=== PATIENT | female | born 1945 | race Caucasian/White ===

== ENCOUNTER → 2017-10-09 | Outpatient (CLI) | payer OTHER, MEDICAID ==
[~2017-10-09] MED LIST: ALENDRONATE SOD70 MG; APRISO0.375 GM PO; BENTYL 10 MG CA10 M1; BENZONATATE100 MG PO; CALCIUM 500 +1 EAC5 PO; CELEXA40 MG PO; COLACE100 MG PO; DITROPAN XL10 M1 PO; FIBER CHOICE C1.5 G1 PO; FISH OIL 1,001000 M2 PO; MECLIZINE 25 MG25 M1 PO; NAPROSYN500 MG PO; NEXIUM40 MG PO; NORCO 5-325 TA1 EAC1 PO; OMEPRAZOLE20 M2; RISPERDAL 1 MG T1 MG; RISPERDAL 1 MG T1 MG PO; SIMVASTATIN40 MG PO; SINGULAIR 10 MG10 M1 PO; TOVIAZ8 MG PO; TRAVATAN Z2.5 ML OTIC; TRIAM60 TOP; UNICOMPLEX M TA1 TA1 PO; VICODIN 5-5001 EACH PO; VITAMINC500 PO
--- NOTE | 2017-10-09 13:42 | 2DMMODE ---
[place] [address] 2 D/M-MODE ECHOCARDIOGRAM Name: CHAD TIERNEY Room: [facility]#: [id number] Admission: 10/09/17 Attend Phys: Karen Isaac Discharge: Date of : 43 Date of Service: 10/09/17 1342 Report #: [id number] THIS REPORT FOR: //name// APPROVED REPORT Study performed: 10/09/2017 10:20:07 EXAM: Comprehensive 2D, Doppler, and color-flow Echocardiogram Patient Location: Out-Patient Status: routine BSA: 1.66 HR: 76 bpm BP: 120/70 mmHg Other Information Study Quality: Good Indications Murmur 2D Dimensions LVEF(%): 64.31 (>50%) IVSd: 11.15 (7-11mm) LVOT Diam: 20.40 (18-24mm) LVDd: 44.08 mm PWd: 10.36 (7-11mm) Ascending Ao: 27.10 (22-36mm) LVDs: 28.71 (25-40mm) Aortic Root: 29.42 mm [place] LVEF: 64.31 % Volumes Left Atrial Volume (Systole) LA ESV Index: 30.10 mL/m2 Aortic Valve AoV Peak Morales.: 2.28 m/s AO Peak Gr.: 20.78 mmHg LVOT Max P.27 mmHg AO Mean Gr.: 10.53 mmHg LVOT Mean P.22 mmHg LVOT Max V: 1.15 m/s AO V2 VTI: 39.78 cm LVOT Mean V: 0.67 m/s SERGE (VTI): 1.69 cm2 LVOT V1 VTI: 20.52 cm Mitral Valve MV Peak Gr.: 7.63 mmHg MV Mean Gr.: 3.54 mmHg E/A Ratio: 1.17 [place] [address] 2 D/M-MODE ECHOCARDIOGRAM Name: CHAD TIERNEY Room: [facility]#: [id number] Admission: 10/09/17 Attend Phys: Karen Isaac Discharge: Date of : 43 Date of Service: 10/09/17 1342 Report #: [id number] MV Decel. Time: 176.12 ms MV E Max Morales.: 1.11 m/s MV PHT: 51.07 ms MVA (PHT): 4.31 cm2 TDI E/Lateral E': 11.10 E/Medial E': 15.86 Medial E' Morales.: 0.07 m/s Lateral E' Morales.: 0.10 m/s Pulmonary Valve PV Peak Morales.: 0.84 m/s PV Peak Gr.: 2.84 mmHg Tricuspid Valve TR Peak Gr.: 23.66 mmHg RVSP: 28.66 mmHg Left Ventricle The left ventricle is normal size. There is normal LV segmental wall motion. There is normal left ventricular wall thickness. Left ventricular systolic function is normal. The left ventricular ejection fraction is within the normal range. LVEF is 55-60%. The left ventricular diastolic function is normal. Right Ventricle The right ventricle is normal size. The right ventricular systolic function is normal. Atria Left atrium is mildly dilated. The right atrium size is normal. Aortic Valve The Aortic valve is sclerotic. No aortic regurgitation is present. There is no aortic valvular stenosis. Mitral Valve There is mitral annular calcification. Mitral valve leaflets are calcified. Moderate mitral regurgitation. No evidence of mitral valve stenosis. There is moderate mitral valve prolapse. Tricuspid Valve The tricuspid valve is normal in structure. Mild tricuspid regurgitation. The RVSP is __28.7 mmHg. Pulmonic Valve The pulmonary valve is normal in structure. [place] [address] 2 D/M-MODE ECHOCARDIOGRAM Name: CHAD TIERNEY [id number] Admission: 10/09/17 Attend Phys: Karen Isaac Discharge: Date of : 43 Date of Service: 10/09/17 1342 Report #: [id number] regurgitation. Great Vessels The aortic root is normal in size. IVC is normal in size and collapses with >50% inspiration Pericardium There is no pericardial effusion. <Conclusion> LVEF is 55-60%. Left atrium is mildly dilated. The Aortic valve is sclerotic. Moderate mitral regurgitation. There is moderate mitral valve prolapse. <ELECTRONICALLY SIGNED> By: Harshad Alvarez MD, FACC 10/09/17 1342 41 134 Harshad Alvarez MD, FACC /INF
== END ==
LOC: M.CRD 09:54
DX: I08.1 Rheumatic disorders of both mitral and tricuspid valves (principal)

== ENCOUNTER 2020-12-20 22:33 | Inpatient (IN) | payer OTHER, MEDICAID ==
[~2020-12-20] VITALS: Ht 149.9 cm; Wt 40.4 kg
[2020-12-20 22:38] VITALS: BP 141/80
[2020-12-20 23:24] LABS: ABSOLUTE EOSINOPHILS 0.2 thou/uL (0.0-0.7); ABSOLUTE MONOCYTES 0.5 thou/uL (0.0-1.2); ABSOLUTE NEUTROPHILS 6.3 thou/uL (1.6-8.1); BASOPHILS 0.5 %; EOSINOPHILS 1.9 %; HEMATOCRIT 33.9 % (37.0-47.0); HEMOGLOBIN 11.3 gm/dL (12.0-15.0); LYMPHOCYTES 12.1 %; MCH 29.9 pg (26.0-34.0); MCHC 33.3 g/dL (28.0-37.0); MCV 89.8 fL (80.0-100.0); MONOCYTES 6.4 %; MPV 7.7 fl. (7.2-11.1); NUCLEATED RBCS 0 /100WBC; PLATELET COUNT* 285 thou/uL (150-400); POLYS 79.1 %; RBC 3.78 mil/uL (4.20-5.00); RDW-CV 14.2 % (10.5-14.5)
[2020-12-20 23:32] LABS: CALCIUM 8.2 mg/dL (8.5-10.1); CREATININE 1.1 mg/dL (0.6-1.3)
[2020-12-20 23:35] LABS: APTT 24.2 Seconds (25.0-31.3); PROTIME 10.6 Seconds (9.20-11.50)
[2020-12-20 23:43] LABS: ALBUMIN 3.7 g/dL (3.4-5.0); TOTAL BILIRUBIN 0.5 mg/dL (<0.1-1.0); TOTAL PROTEIN 7.2 g/dL (6.4-8.2)
[2020-12-21] VITALS (7 sets, daily range): BP systolic 121–160; BP diastolic 60–96
[2020-12-21 02:20] LABS: URINE BILIRUBIN NEGATIVE (Negative); URINE BLOOD TRACE (Negative); URINE CLARITY CLEAR; URINE COLOR YELLOW; URINE GLUCOSE-RANDOM NEGATIVE (Negative); URINE KETONES NEGATIVE (Negative); URINE LEUKOCYTES-REFLEX NEGATIVE (Negative); URINE NITRITE-REFLEX NEGATIVE (Negative); URINE PROTEIN NEGATIVE (Negative); URINE UROBILINOGEN 0.2 E.U./dl (0.2-1.0)
[2020-12-21 04:30] LABS: BE -4.9 mmol/L (-2 to +3); PCO2 36.2 mmHg (35.0-45.0); PO2 75.3 mmHg (75.0-100.0); pH 7.358 (7.340-7.450)
[2020-12-21 09:13] LABS: CHOLESTEROL 161 mg/dL (<200); HDL CHOLESTEROL 77 mg/dL (>40); LDL CHOLESTEROL 73 mg/dL (<100); SERUM ASSESSMENT Clear; TC:HDL 2.1 Ratio (Not establshd); TRIGLYCERIDE 57 mg/dL (<150); VLDL 11 mg/dL (<40)
--- NOTE | 2020-12-21 11:24 | EKG ---
[place] [address] ELECTROCARDIOGRAM REPORT Name: NIALLCHADMercedes HUERTA Room: [address] ADM IN M.R.#: [id number] Admission: 12/21/20 Attend Phys: Marilu Flores MD Discharge: Date of : 43 Date of Service: 12/20/202240 Report #: [id number] THIS REPORT FOR: //name// [facility] ED Test Date: 2020-12-20 Test Time: 22:41:38 Pat Name: CHAD TIERNEY Department: Room: 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1945 Requested By: Leatha Pete Order Number: [id number] MD: Luís Vizcaino Measurements Intervals [place] Rate: 98 P: 38 SD: 171 QRS: -48 QRSD: 92 T: 32 QT: 355 QTc: 454 Interpretive Statements Sinus rhythm Atrial premature complex Probable left atrial enlargement RSR' in V1 or V2, right VCD Inferior infarct, old possible Compared to ECG 11/26/2010 13:44:43 Atrial premature complex(es) now present RSR' in V1 or V2 now present Myocardial infarct finding now possible Left axis deviation persists Electronically Signed On 12-21-2020 11:24:00 CDT by Luís Vizcaino [email or web address] <ELECTRONICALLY SIGNED> By: Luís Vizcaino MD, [facility] 12/21/20 1124 40 40 Luís Vizcaino MD, [facility] /EPI
--- NOTE | 2020-12-21 11:27 | EKG ---
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[place] : 1945 Requested By: Leatha Pete Order Number: [id number] MD: Luís Vizcaino Measurements Intervals [place] Rate: 94 P: 52 [place]: 171 QRS: -43 QRSD: 92 T: 12 QT: 367 QTc: 459 Interpretive Statements Sinus rhythm Probable left atrial enlargement Abnormal R-wave progression, late transition Inferior infarct, old possible Compared to ECG 12/20/2020 22:41:38 Atrial premature complex(es) no longer present Right ventricular hypertrophy no longer present Myocardial infarct finding still present Electronically Signed On 12-21-2020 11:26:56 CDT by Luís Vizcaino [email or web address] <ELECTRONICALLY SIGNED> By: Luís Vizcaino MD, [facility] 12/21/20 1126 1 1 Luís Vizcaino MD, [facility] /EPI
[2020-12-21] MEDS ORDERED: PRILOSEC OTC20 MG PO (12:14)
[2020-12-21] MEDS ORDERED: SINGULAIR 10 MG10 MG PO (12:15)
[2020-12-21] MEDS ORDERED: BREO ELLIPTA 11 EACH INH (12:17)
[2020-12-21] MEDS ORDERED: ASPIRIN EC325 M1 PO (12:23)
--- NOTE | 2020-12-21 13:39 | 2DMMODE ---
[place] [address] 2 D/M-MODE ECHOCARDIOGRAM Name: CHAD TIERNEY BRADLEY Room: [address] IN [facility]#: [id number] Admission: 12/21/20 Attend Phys: Marilu Flores MD Discharge: Date of : 43 Date of Service: 12/21/20 1338 Report #: [id number] THIS REPORT FOR: cc: César Magana MD, Bruce D. MD Holkins,Luís Wahl MD [facility] ~ APPROVED REPORT Study performed: 12/21/2020 10:32:45 EXAM: Comprehensive 2D, Doppler, and color-flow Echocardiogram Patient Location: In-Patient Room #: 002 Status: routine BSA: 1.65 HR: 87 bpm BP: 127/66 mmHg Rhythm: NSR Other Information Study Quality: Good Indications Dyspnea 2D Dimensions IVSd: 9.33 (7-11mm) LVOT Diam: 19.94 (18-24mm) LVDd: 59.03 mm PWd: 10.26 (7-11mm) Ascending Ao: 29.55 (22-36mm) LVDs: 37.69 (25-40mm) Aortic Root: 32.64 mm Volumes Left Atrial Volume (Systole) LA ESV Index: 76.90 mL/m2 Aortic Valve AoV Peak Morales.: 2.71 m/s AO Peak Gr.: 29.45 mmHg LVOT Max P.86 mmHg AO Mean Gr.: 15.78 mmHg LVOT Mean P.38 mmHg LVOT Max V: 1.10 m/s AO V2 VTI: 44.51 cm LVOT Mean V: 0.70 m/s SERGE (VTI): 1.39 cm2 LVOT V1 VTI: 19.83 [place] [address] 2 D/M-MODE ECHOCARDIOGRAM Name: CHAD TIERNEY Room: [address] IN .R.#: [id number] Admission: 12/21/20 Attend Phys: Marilu Flores MD Discharge: Date of : 43 Date of Service: 12/21/20 1338 Report #: [id number] Mitral Valve MV Mean Gr.: 4.88 mmHg E/A Ratio: 1.46 MV Decel. Time: 219.24 ms MV E Max Morales.: 1.39 m/s MV PHT: 63.58 ms MVA (PHT): 3.46 cm2 TDI E/Lateral E': 10.69 E/Medial E': 9.93 Medial E' Morales.: 0.14 m/s Lateral E' Morales.: 0.13 m/s Pulmonary Valve PV Peak Morales.: 1.03 m/s PV Peak Gr.: 4.22 mmHg Tricuspid Valve RAP Estimate: 5.00 mmHg TR Peak Gr.: 53.14 mmHg RVSP: 58.00 mmHg PA Pressure: 58.00 mmHg Left Ventricle The left ventricle is normal size. There is normal LV segmental wall motion. There is normal left ventricular wall thickness. Left ventricular systolic function is normal. The left ventricular ejection fraction is within the normal range. LVEF is 65%. The left ventricular diastolic function is normal. Right Ventricle The right ventricle is normal size. The right ventricular systolic function is normal. Atria Left atrium is moderately dilated. The right atrium size is normal. Aortic Valve Moderate aortic valve sclerosis. No aortic regurgitation is present. Mild to moderate aortic stenosis. Mitral Valve Moderate mitral annular calcification. Mild mitral regurgitation. No evidence of mitral valve stenosis. Tricuspid Valve The tricuspid valve is normal in structure. Mild tricuspid regurgitation. [place] [address] 2 D/M-MODE ECHOCARDIOGRAM Name: CHAD TIERNEY Room: [address] IN [facility]#: [id number] Admission: 12/21/20 Attend Phys: Marilu Flores MD Discharge: Date of : 43 Date of Service: 12/21/20 1338 Report #: [id number] Pulmonic Valve The pulmonary valve is normal in structure. Trace pulmonic regurgitation. Great Vessels The aortic root is normal in size. IVC is normal in size and collapses >50% with inspiration. Pericardium There is no pericardial effusion. <Conclusion> The left ventricle is normal size. There is normal left ventricular wall thickness. Left ventricular systolic function is normal. The left ventricular ejection fraction is within the normal range. LVEF is 65%. The left ventricular diastolic function is normal. The right ventricle is normal size. Left atrium is moderately dilated. The right atrium size is normal. Moderate aortic valve sclerosis. No aortic regurgitation is present. Mild to moderate aortic stenosis. Moderate mitral annular calcification. Mild mitral regurgitation. No evidence of mitral valve stenosis. The tricuspid valve is normal in structure. Mild tricuspid regurgitation. Moderate pulmonary hypertension. IVC is normal in size and collapses >50% with inspiration. There is no pericardial effusion. There is normal LV segmental wall motion. <ELECTRONICALLY SIGNED> By: Luís Vizcaino MD, FACC 12/21/20 1338 1338 1338 Luís Vizcaino MD, FACC /INF
[2020-12-21] MEDS ORDERED: RHOPRESSA2.5 ML OPHTHALMIC (21:42)
[2020-12-21] MEDS ORDERED: VESICARE10 M1 PO (21:45)
[2020-12-22 04:00] VITALS: BP 128/65
[2020-12-22 04:49] LABS: CALCIUM 8.5 mg/dL (8.5-10.1); CREATININE 0.9 mg/dL (0.6-1.3)
[2020-12-22 08:55] VITALS: BP 114/57
[2020-12-22 11:57] VITALS: BP 125/77
[2020-12-22 16:43] VITALS: BP 139/78
[2020-12-22 20:30] VITALS: BP 121/68
[2020-12-23] VITALS (8 sets, daily range): BP systolic 114–117; BP diastolic 57–75
[2020-12-23 06:08] LABS: CALCIUM 9.1 mg/dL (8.5-10.1); CREATININE 0.8 mg/dL (0.6-1.3); MAGNESIUM 2.2 mg/dL (1.8-2.4); POTASSIUM 4.1 mmol/L (3.5-5.1)
[2020-12-23] MEDS ORDERED: LASIX 40 MG TAB40 M1 PO (10:23)
== END 2020-12-23 14:16 | disposition home health service (06) | DRG 291 ==
LOC: M.ERS 22:33 → M.TBA-ER 12-21 02:52 → M.2W 12-21 04:14 → M.ICU 12-21 04:14 → M.TBA-ER 12-21 04:14 → M.ICU 12-21 06:38 → M.2W 12-21 15:06
PROVIDERS: Internal Medicine; Personal Emergency Response Attendant; Registered Nurse; ADMIT Family Medicine; ATTEND Family Medicine
DX: I50.33 Acute on chronic diastolic (congestive) heart failure (principal); J96.01 Acute respiratory failure with hypoxia; J45.901 Unspecified asthma with (acute) exacerbation; F41.9 Anxiety disorder, unspecified; E78.00 Pure hypercholesterolemia, unspecified; K21.9 Gastro-esophageal reflux disease without esophagitis; K58.9 Irritable bowel syndrome, unspecified; Z60.2 Problems related to living alone; I27.20 Pulmonary hypertension, unspecified; I34.1 Nonrheumatic mitral (valve) prolapse; E78.5 Hyperlipidemia, unspecified; F20.9 Schizophrenia, unspecified; I35.0 Nonrheumatic aortic (valve) stenosis; Z20.822 Contact with and (suspected) exposure to COVID-19; Z90.49 Acquired absence of other specified parts of digestive tract; Z79.899 Other long term (current) drug therapy

== ENCOUNTER 2021-01-04 21:05 | Observation (INO) | payer OTHER, MEDICAID ==
[~2021-01-04] VITALS: Ht 152.4 cm; Wt 70.8 kg
[~2021-01-04 21:05] MED LIST changes: +ASPIRIN EC325 M1 PO; +BREO ELLIPTA 11 EACH INH; +LASIX 40 MG TAB40 M1 PO; +PRILOSEC OTC20 MG PO; +RHOPRESSA2.5 ML OPHTHALMIC; +SINGULAIR 10 MG10 MG PO; +VESICARE10 M1 PO
[2021-01-04 21:11] VITALS: BP 138/70
[2021-01-04 21:33] LABS: ABSOLUTE BASOPHILS 0.1 thou/uL (0.0-0.2); ABSOLUTE EOSINOPHILS 0.1 thou/uL (0.0-0.7); ABSOLUTE LYMPHOCYTES 1.2 thou/uL (0.8-5.3); ABSOLUTE MONOCYTES 0.5 thou/uL (0.0-1.2); ABSOLUTE NEUTROPHILS 5.4 thou/uL (1.6-8.1); BASOPHILS 0.8 %; EOSINOPHILS 1.8 %; HEMATOCRIT 37.5 % (37.0-47.0); HEMOGLOBIN 12.5 gm/dL (12.0-15.0); LYMPHOCYTES 16.6 %; MCH 29.8 pg (26.0-34.0); MCHC 33.4 g/dL (28.0-37.0); MCV 89.4 fL (80.0-100.0); MONOCYTES 7.2 %; MPV 7.7 fl. (7.2-11.1); NUCLEATED RBCS 0 /100WBC; PLATELET COUNT* 268 thou/uL (150-400); POLYS 73.6 %; RBC 4.19 mil/uL (4.20-5.00); RDW-CV 14.7 % (10.5-14.5); WBC 7.3 thou/uL (4.0-11.0)
[2021-01-04 21:42] LABS: CALCIUM 9.1 mg/dL (8.5-10.1); POTASSIUM 3.6 mmol/L (3.5-5.1)
[2021-01-04 21:44] LABS: URINE BILIRUBIN NEGATIVE (Negative); URINE BLOOD 1+ (Negative); URINE CLARITY CLEAR; URINE COLOR YELLOW; URINE GLUCOSE-RANDOM NEGATIVE (Negative); URINE KETONES TRACE (Negative); URINE LEUKOCYTES-REFLEX TRACE (Negative); URINE NITRITE-REFLEX NEGATIVE (Negative); URINE PROTEIN NEGATIVE (Negative); URINE UROBILINOGEN 0.2 E.U./dl (0.2-1.0)
[2021-01-04 21:44] LABS: PROTIME 10.3 Seconds (9.20-11.50)
[2021-01-04 21:51] LABS: BACTERIA-REFLEX 1-9 Few /HPF (None Seen); CASTS None Seen /LPF (None Seen); CRYSTALS None Seen /LPF (None Seen); SQUAMOUS 0-3 Few /LPF (0-3); URINE RBC 3-10 Few /HPF (0-2); URINE WBC-REFLEX 0-5 Rare /HPF (0-5)
[2021-01-04 21:52] LABS: ALBUMIN 4.1 g/dL (3.4-5.0); MAGNESIUM 2.1 mg/dL (1.8-2.4); TOTAL BILIRUBIN 0.5 mg/dL (<0.1-1.0); TOTAL PROTEIN 7.6 g/dL (6.4-8.2)
[2021-01-05 01:10] VITALS: BP 127/63
[2021-01-05 02:00] VITALS: BP 127/69
[2021-01-05 08:00] VITALS: BP 116/63
[2021-01-05 10:02] LABS: CHOLESTEROL 196 mg/dL (<200); HDL CHOLESTEROL 93 mg/dL (>40); LDL CHOLESTEROL 87 mg/dL (<100); SERUM ASSESSMENT Clear; TC:HDL 2.1 Ratio (Not establshd); TRIGLYCERIDE 82 mg/dL (<150); VLDL 16 mg/dL (<40)
[2021-01-05 12:00] VITALS: BP 120/68
--- NOTE | 2021-01-05 14:17 | EKG ---
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
[2021-01-05 16:00] VITALS: BP 127/71
[2021-01-06 00:21] VITALS: BP 124/69
[2021-01-06 04:16] LABS: HEMATOCRIT 35.9 % (37.0-47.0); HEMOGLOBIN 11.9 gm/dL (12.0-15.0); MCH 29.4 pg (26.0-34.0); MCHC 33.2 g/dL (28.0-37.0); MCV 88.8 fL (80.0-100.0); MPV 8.2 fl. (7.2-11.1); RBC 4.04 mil/uL (4.20-5.00); RDW-CV 14.4 % (10.5-14.5); WBC 6.5 thou/uL (4.0-11.0)
[2021-01-06 04:31] LABS: ALBUMIN 3.4 g/dL (3.4-5.0); CALCIUM 8.9 mg/dL (8.5-10.1); CREATININE 0.9 mg/dL (0.6-1.3); MAGNESIUM 2.3 mg/dL (1.8-2.4); POTASSIUM 3.7 mmol/L (3.5-5.1); TOTAL BILIRUBIN 0.4 mg/dL (<0.1-1.0); TOTAL PROTEIN 6.8 g/dL (6.4-8.2)
[2021-01-06 05:19] VITALS: BP 120/70
[2021-01-06 08:00] VITALS: BP 128/76
[2021-01-06 11:12] VITALS: BP 128/76
[2021-01-06 12:00] VITALS: BP 107/61
== END 2021-01-06 14:09 | disposition home or self-care (01) ==
LOC: M.ERS 21:05 → M.2W 01-05 00:42 → M.TBA-ER 01-05 00:42 → M.2W 01-05 01:28
PROVIDERS: Emergency Medicine; ADMIT Internal Medicine; ATTEND Internal Medicine
DX: R00.2 Palpitations (principal); Z20.822 Contact with and (suspected) exposure to COVID-19; I50.32 Chronic diastolic (congestive) heart failure; I35.0 Nonrheumatic aortic (valve) stenosis; J45.909 Unspecified asthma, uncomplicated; K21.9 Gastro-esophageal reflux disease without esophagitis; F25.9 Schizoaffective disorder, unspecified; F41.9 Anxiety disorder, unspecified; K58.9 Irritable bowel syndrome, unspecified; H40.9 Unspecified glaucoma; E78.5 Hyperlipidemia, unspecified; Z79.82 Long term (current) use of aspirin; Z79.899 Other long term (current) drug therapy

== ENCOUNTER 2021-04-03 11:47 | Emergency (ER) | payer OTHER, MEDICAID ==
[~2021-04-03] VITALS: Ht 149.9 cm; Wt 63.5 kg
[2021-04-03 12:51] LABS: ABSOLUTE BASOPHILS 0.1 thou/uL (0.0-0.2); ABSOLUTE EOSINOPHILS 0.4 thou/uL (0.0-0.7); ABSOLUTE LYMPHOCYTES 0.8 thou/uL (0.8-5.3); ABSOLUTE MONOCYTES 0.5 thou/uL (0.0-1.2); ABSOLUTE NEUTROPHILS 5.9 thou/uL (1.6-8.1); BASOPHILS 0.9 %; EOSINOPHILS 4.7 %; HEMATOCRIT 28.4 % (37.0-47.0); HEMOGLOBIN 9.5 gm/dL (12.0-15.0); LYMPHOCYTES 10.3 %; MCH 28.4 pg (26.0-34.0); MCHC 33.4 g/dL (28.0-37.0); NUCLEATED RBCS 0 /100WBC; PLATELET COUNT* 467 thou/uL (150-400); POLYS 77.1 %; RBC 3.34 mil/uL (4.20-5.00); WBC 7.7 thou/uL (4.0-11.0)
[2021-04-03 13:06] LABS: CALCIUM 8.4 mg/dL (8.5-10.1); CREATININE 0.9 mg/dL (0.6-1.3)
[2021-04-03 13:11] LABS: ALBUMIN 2.7 g/dL (3.4-5.0); TOTAL BILIRUBIN 0.7 mg/dL (<0.1-1.0); TOTAL PROTEIN 6.8 g/dL (6.4-8.2)
[2021-04-03] MEDS ORDERED: CARVEDILOL12.5 MG PO (13:53)
[2021-04-03 13:59] LABS: URINE BILIRUBIN NEGATIVE (Negative); URINE BLOOD NEGATIVE (Negative); URINE CLARITY CLEAR; URINE COLOR YELLOW; URINE GLUCOSE-RANDOM NEGATIVE (Negative); URINE KETONES NEGATIVE (Negative); URINE LEUKOCYTES-REFLEX NEGATIVE (Negative); URINE NITRITE-REFLEX NEGATIVE (Negative); URINE PROTEIN NEGATIVE (Negative); URINE UROBILINOGEN 0.2 E.U./dl (0.2-1.0)
[2021-04-03] MEDS ORDERED: APAP W/CODEINE1 TA2 PO (14:19)
[2021-04-03 14:31] VITALS: BP 121/70
[2021-04-03 15:35] LABS: ESR (SEDRATE) 75 mm/hr (0-30)
--- NOTE | 2021-04-05 09:51 | EKG ---
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[place] : 1945 Requested By: Lisa White Order Number: [id number] MD: Harshad Alvarez Measurements Intervals [place] Rate: 82 P: 55 [place]: 173 QRS: -48 QRSD: 96 T: -12 QT: 412 QTc: 482 Interpretive Statements Sinus rhythm Abnormal R-wave progression, late transition left anterior fasicular block Compared to ECG 01/04/2021 21:15:47 no change Electronically Signed On 04-05-2021 9:51:38 CDT by Harshad Alvarez [email or web address] <ELECTRONICALLY SIGNED> By: Harshad Alvarez MD, [facility] 04/05/21 0951 1222 1222 Harshad Alvarez MD, [facility] /EPI
== END 2021-04-03 14:32 | disposition home or self-care (01) ==
LOC: M.ERS 11:47
PROVIDERS: Physician Assistant
DX: S61.411A Laceration without foreign body of right hand, initial encounter (principal); R06.02 Shortness of breath; J45.909 Unspecified asthma, uncomplicated; I50.9 Heart failure, unspecified; D64.9 Anemia, unspecified; R53.1 Weakness; K21.9 Gastro-esophageal reflux disease without esophagitis; E78.00 Pure hypercholesterolemia, unspecified; Z90.89 Acquired absence of other organs; Z98.890 Other specified postprocedural states; X50.9XXA Other and unspecified overexertion or strenuous movements or postures, initial encounter; Y93.89 Activity, other specified; Y92.89 Other specified places as the place of occurrence of the external cause; Y99.8 Other external cause status

== ENCOUNTER 2021-06-14 13:46 | Inpatient (IN) | payer OTHER, MEDICAID ==
[~2021-06-14] VITALS: Ht 149.9 cm; Wt 63.5 kg
[~2021-06-14 13:46] MED LIST changes: +APAP W/CODEINE1 TA2 PO; +CARVEDILOL12.5 MG PO
[2021-06-14 13:55] VITALS: BP 134/68
[2021-06-14] MEDS ORDERED: FUROSEMIDE 40 M40 MG PO (14:05)
[2021-06-14 14:36] LABS: ABSOLUTE BASOPHILS 0.1 thou/uL (0.0-0.2); ABSOLUTE EOSINOPHILS 0.1 thou/uL (0.0-0.7); ABSOLUTE LYMPHOCYTES 0.7 thou/uL (0.8-5.3); ABSOLUTE MONOCYTES 0.6 thou/uL (0.0-1.2); ABSOLUTE NEUTROPHILS 6.1 thou/uL (1.6-8.1); BASOPHILS 0.8 %; HEMATOCRIT 35.5 % (37.0-47.0); HEMOGLOBIN 11.9 gm/dL (12.0-15.0); LYMPHOCYTES 8.9 %; MCH 28.8 pg (26.0-34.0); MCHC 33.4 g/dL (28.0-37.0); MCV 86.2 fL (80.0-100.0); MONOCYTES 7.8 %; NUCLEATED RBCS 0 /100WBC; PLATELET COUNT* 298 thou/uL (150-400); POLYS 80.5 %; RBC 4.12 mil/uL (4.20-5.00); RDW-CV 16.9 % (10.5-14.5); WBC 7.6 thou/uL (4.0-11.0)
[2021-06-14 14:45] LABS: CALCIUM 8.7 mg/dL (8.5-10.1); POTASSIUM 4.5 mmol/L (3.5-5.1)
[2021-06-14 14:56] LABS: ALBUMIN 3.5 g/dL (3.4-5.0); TOTAL BILIRUBIN 0.7 mg/dL (<0.1-1.0)
--- NOTE | 2021-06-14 15:21 | EKG ---
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1945 Requested By: Antoni Patel Order Number: [id number] MD: Harshad Alvarez Measurements Intervals [place] Rate: 82 P: 52 MD: 169 QRS: -55 QRSD: 94 T: -8 QT: 400 QTc: 468 Interpretive Statements Sinus rhythm RsR' in lead V1 LAD, consider left anterior fascicular block Low voltage, precordial leads Abnormal R-wave progression, late transition Borderline T abnormalities, inferior leads Compared to ECG 04/03/2021 12:22:26 Low QRS voltage now present Electronically Signed On 06-14-2021 15:21:21 CDT by Harshad Alvarez [email or web address] <ELECTRONICALLY SIGNED> By: Harshad Alvarez MD, [facility] 06/14/21 1521 1434 1434 Harshad Alvarez MD, [facility] /EPI
[2021-06-14 17:20] VITALS: BP 126/78
[2021-06-14 20:00] VITALS: BP 118/77
[2021-06-14 23:44] VITALS: BP 107/62
[2021-06-15 04:27] VITALS: BP 137/84
[2021-06-15 08:00] VITALS: BP 109/64
[2021-06-15 12:08] VITALS: BP 116/60
[2021-06-15 15:53] VITALS: BP 124/70
--- NOTE | 2021-06-15 16:12 | 2DMMODE ---
[place] [address] 2 D/M-MODE ECHOCARDIOGRAM Name: NIALLCHAD Room: [address] IN [facility]#: [id number] Admission: 06/14/21 Attend Phys: Tomy Romano Discharge: Date of : 43 Date of Service: 06/15/21 1612 Report #: [id number] THIS REPORT FOR: cc: César Magana MD, Bruce D. MD [place], Michael J. MD [facility] ~ APPROVED REPORT Study performed: 06/15/2021 15:35:16 EXAM: Comprehensive 2D, Doppler, and color-flow Echocardiogram Patient Location: In-Patient Room #: 219 Status: routine BSA: 1.58 HR: 98 bpm BP: 116/60 mmHg Rhythm: NSR Other Information Study Quality: Good Indications Congestive Heart Failure 2D Dimensions IVSd: 11.16 (7-11mm) LVOT Diam: 19.98 (18-24mm) LVDd: 52.53 mm PWd: 12.33 (7-11mm) Ascending Ao: 32.60 (22-36mm) LVDs: 31.28 (25-40mm) Aortic Root: 31.77 mm Volumes Left Atrial Volume (Systole) LA ESV Index: 75.80 mL/m2 Aortic Valve AoV Peak Morales.: 2.64 m/s AO Peak Gr.: 27.79 mmHg LVOT Max P.51 mmHg AO Mean Gr.: 14.99 mmHg LVOT Mean P.47 mmHg LVOT Max V: 1.17 m/s AO V2 VTI: 39.70 cm LVOT Mean V: 0.71 m/s SERGE (VTI): 1.55 cm2 LVOT V1 VTI: 19.62 [place] [address] 2 D/M-MODE ECHOCARDIOGRAM Name: CHAD TIERNEY Room: [address] IN ..#: [id number] Admission: 06/14/21 Attend Phys: Tomy Romano Discharge: Date of : 43 Date of Service: 06/15/21 1612 Report #: [id number] Mitral Valve MV Mean Gr.: 5.85 mmHg E/A Ratio: 1.46 MV Decel. Time: 213.52 ms MV E Max Morales.: 1.63 m/s MV PHT: 61.92 ms MVA (PHT): 3.55 cm2 TDI E/Lateral E': 10.87 E/Medial E': 13.58 Medial E' Morales.: 0.12 m/s Lateral E' Morales.: 0.15 m/s Pulmonary Valve PV Peak Morales.: 2.12 m/s PV Peak Gr.: 17.95 mmHg Tricuspid Valve RAP Estimate: 5.00 mmHg TR Peak Gr.: 63.76 mmHg RVSP: 68.00 mmHg PA Pressure: 68.00 mmHg Left Ventricle The left ventricle is normal size. There is normal LV segmental wall motion. Mild concentric left ventricular hypertrophy. Left ventricular systolic function is normal. LVEF is 60-65%. Transmitral Doppler flow pattern suggests restrictive physiology. Right Ventricle The right ventricle is normal size. The right ventricular systolic function is normal. Atria Left atrium is moderately dilated. The right atrium size is normal. Aortic Valve Moderate to severe aortic valve sclerosis. Mild aortic regurgitation. Moderate aortic stenosis. Mitral Valve Moderate mitral annular calcification. Moderate mitral regurgitation. No evidence of mitral valve stenosis. Tricuspid Valve The tricuspid valve is normal in structure. Mild tricuspid regurgitation. Moderate to severe pulmonary hypertension. The RVSP is 75 [place] [address] 2 D/M-MODE ECHOCARDIOGRAM Name: CHAD TIERNEY Room: [address] IN [facility]#: [id number] Admission: 06/14/21 Attend Phys: Tomy Romano Discharge: Date of : 43 Date of Service: 06/15/21 1612 Report #: [id number] Pulmonic Valve The pulmonary valve is normal in structure. Mild pulmonic regurgitation. Great Vessels The aortic root is normal in size. IVC is normal in size and collapses >50% with inspiration. Pericardium There is no pericardial effusion. <Conclusion> The left ventricle is normal size. Mild concentric left ventricular hypertrophy. Left ventricular systolic function is normal. LVEF is 60-65%. Transmitral Doppler flow pattern suggests restrictive physiology. There is normal LV segmental wall motion. Left atrium is moderately dilated. Moderate to severe aortic valve sclerosis. Mild aortic regurgitation. Moderate aortic stenosis. Moderate mitral annular calcification. Moderate mitral regurgitation. Mild tricuspid regurgitation. Moderate to severe pulmonary hypertension. The RVSP is 75 mmHg. <ELECTRONICALLY SIGNED> By: Isaías Quarles MD, FACC 06/15/211611 11 11 Isaías Quarles MD, FACC /INF
[2021-06-15 20:00] VITALS: BP 109/77
[2021-06-16] VITALS: BP 130/61
[2021-06-16 04:32] VITALS: BP 105/60
[2021-06-16 05:29] LABS: HEMATOCRIT 30.3 % (37.0-47.0); HEMOGLOBIN 10.1 gm/dL (12.0-15.0); MCH 28.8 pg (26.0-34.0); MCHC 33.4 g/dL (28.0-37.0); MCV 86.1 fL (80.0-100.0); MPV 7.1 fl. (7.2-11.1); RBC 3.52 mil/uL (4.20-5.00); RDW-CV 17.2 % (10.5-14.5); WBC 8.4 thou/uL (4.0-11.0)
[2021-06-16 05:49] LABS: CALCIUM 8.3 mg/dL (8.5-10.1); CREATININE 0.9 mg/dL (0.6-1.3); POTASSIUM 3.9 mmol/L (3.5-5.1)
[2021-06-16 08:00] VITALS: BP 111/68
[2021-06-16 11:53] VITALS: BP 95/49
[2021-06-16 17:41] VITALS: BP 118/82
[2021-06-17] VITALS (7 sets, daily range): BP systolic 85–142; BP diastolic 61–82
[2021-06-17 04:33] LABS: ABSOLUTE EOSINOPHILS 0.1 thou/uL (0.0-0.7); ABSOLUTE LYMPHOCYTES 0.6 thou/uL (0.8-5.3); ABSOLUTE MONOCYTES 0.6 thou/uL (0.0-1.2); ABSOLUTE NEUTROPHILS 6.5 thou/uL (1.6-8.1); BASOPHILS 0.3 %; EOSINOPHILS 1.4 %; HEMATOCRIT 30.4 % (37.0-47.0); HEMOGLOBIN 10.3 gm/dL (12.0-15.0); LYMPHOCYTES 7.6 %; MCH 29.3 pg (26.0-34.0); MCHC 33.9 g/dL (28.0-37.0); MCV 86.4 fL (80.0-100.0); MONOCYTES 7.7 %; MPV 6.9 fl. (7.2-11.1); NUCLEATED RBCS 0 /100WBC; PLATELET COUNT* 246 thou/uL (150-400); RBC 3.52 mil/uL (4.20-5.00); WBC 7.9 thou/uL (4.0-11.0)
[2021-06-17 04:40] LABS: CREATININE 0.8 mg/dL (0.6-1.3); POTASSIUM 3.3 mmol/L (3.5-5.1)
[2021-06-18] VITALS (7 sets, daily range): BP systolic 104–131; BP diastolic 68–82
[2021-06-18 04:04] LABS: HEMATOCRIT 33.2 % (37.0-47.0); MCH 28.6 pg (26.0-34.0); MCHC 33.1 g/dL (28.0-37.0); MCV 86.3 fL (80.0-100.0); MPV 6.9 fl. (7.2-11.1); RBC 3.85 mil/uL (4.20-5.00); RDW-CV 16.7 % (10.5-14.5); WBC 8.7 thou/uL (4.0-11.0)
[2021-06-18 04:37] LABS: MAGNESIUM 1.8 mg/dL (1.8-2.4); POTASSIUM 3.9 mmol/L (3.5-5.1)
[2021-06-19 04:00] VITALS: BP 116/78
[2021-06-19 04:44] LABS: CALCIUM 8.4 mg/dL (8.5-10.1); POTASSIUM 4.4 mmol/L (3.5-5.1)
[2021-06-19 07:24] VITALS: BP 114/73
[2021-06-19 11:30] VITALS: BP 116/62
[2021-06-19 16:00] VITALS: BP 125/80
[2021-06-19 20:30] VITALS: BP 103/59
[2021-06-19 23:45] VITALS: BP 104/61
[2021-06-20 04:16] LABS: ABSOLUTE EOSINOPHILS 0.3 thou/uL (0.0-0.7); ABSOLUTE LYMPHOCYTES 0.8 thou/uL (0.8-5.3); ABSOLUTE MONOCYTES 0.7 thou/uL (0.0-1.2); ABSOLUTE NEUTROPHILS 5.8 thou/uL (1.6-8.1); BASOPHILS 0.3 %; HEMATOCRIT 31.8 % (37.0-47.0); HEMOGLOBIN 10.8 gm/dL (12.0-15.0); LYMPHOCYTES 10.2 %; MCH 29.4 pg (26.0-34.0); MCV 86.3 fL (80.0-100.0); MONOCYTES 9.1 %; MPV 7.1 fl. (7.2-11.1); NUCLEATED RBCS 0 /100WBC; PLATELET COUNT* 265 thou/uL (150-400); POLYS 76.4 %; RBC 3.69 mil/uL (4.20-5.00); RDW-CV 16.4 % (10.5-14.5); WBC 7.7 thou/uL (4.0-11.0)
[2021-06-20 04:33] LABS: ALBUMIN 2.9 g/dL (3.4-5.0); CALCIUM 8.5 mg/dL (8.5-10.1); CREATININE 1.1 mg/dL (0.6-1.3); TOTAL BILIRUBIN 0.4 mg/dL (<0.1-1.0); TOTAL PROTEIN 6.2 g/dL (6.4-8.2)
[2021-06-20 04:46] VITALS: BP 107/63
[2021-06-20 07:27] VITALS: BP 99/56
[2021-06-20] MEDS ORDERED: SPIRONOLACTONE25 MG PO (08:08)
[2021-06-20] MEDS ORDERED: DEMADEX20 MG PO (08:08)
[2021-06-20] MEDS ORDERED: LOPRESSOR50 PO (08:08)
[2021-06-20 12:00] VITALS: BP 100/62
[2021-06-20 16:00] VITALS: BP 101/59
[2021-06-20 20:30] VITALS: BP 109/69
[2021-06-20 23:42] VITALS: BP 115/43
[2021-06-21 04:11] VITALS: BP 100/66
[2021-06-21 07:40] VITALS: BP 112/76
[2021-06-21 18:54] VITALS: BP 122/62
[2021-06-21 19:43] VITALS: BP 108/63
[2021-06-22] VITALS: BP 113/72
[2021-06-22 08:00] VITALS: BP 106/64
[2021-06-22 09:12] LABS: CALCIUM 9.1 mg/dL (8.5-10.1); CREATININE 0.9 mg/dL (0.6-1.3); POTASSIUM 4.1 mmol/L (3.5-5.1)
[2021-06-22 15:35] VITALS: BP 116/72
[2021-06-22 20:05] VITALS: BP 111/71
[2021-06-23 08:00] VITALS: BP 107/58
[2021-06-23 12:27] VITALS: BP 85/61
[2021-06-23 13:50] VITALS: BP 85/61
[2021-06-23 14:30] VITALS: BP 85/61
[2021-06-23 15:31] VITALS: BP 85/61
== END 2021-06-23 15:30 | disposition home health service (06) | DRG 291 ==
LOC: M.ERS 13:46 → M.2W 15:12 → M.TBA-ER 15:12 → M.2W 17:28 → M.3W 06-21 18:01
PROVIDERS: Family Medicine; Internal Medicine; Internal Medicine Cardiovascular Disease; Registered Nurse; ADMIT Internal Medicine; ATTEND Internal Medicine
DX: I50.33 Acute on chronic diastolic (congestive) heart failure (principal); J15.9 Unspecified bacterial pneumonia; E87.1 Hypo-osmolality and hyponatremia; J96.11 Chronic respiratory failure with hypoxia; Z20.822 Contact with and (suspected) exposure to COVID-19; F41.9 Anxiety disorder, unspecified; J45.909 Unspecified asthma, uncomplicated; K21.9 Gastro-esophageal reflux disease without esophagitis; E78.00 Pure hypercholesterolemia, unspecified; F20.9 Schizophrenia, unspecified; K58.9 Irritable bowel syndrome, unspecified; I35.0 Nonrheumatic aortic (valve) stenosis; E78.5 Hyperlipidemia, unspecified; E83.42 Hypomagnesemia; E87.6 Hypokalemia; I27.20 Pulmonary hypertension, unspecified; J44.9 Chronic obstructive pulmonary disease, unspecified; Z90.49 Acquired absence of other specified parts of digestive tract; Z87.81 Personal history of (healed) traumatic fracture; Z82.49 Family history of ischemic heart disease and other diseases of the circulatory system

== ENCOUNTER 2021-06-25 01:16 | Inpatient (IN) | payer OTHER, MEDICAID ==
[~2021-06-25] VITALS: Ht 121.9 cm; Wt 65.6 kg
[2021-06-25] VITALS (7 sets, daily range): BP systolic 102–116; BP diastolic 57–75
[~2021-06-25 01:16] MED LIST changes: +DEMADEX20 MG PO; +FUROSEMIDE 40 M40 MG PO; +LOPRESSOR50 PO; +SPIRONOLACTONE25 MG PO
[2021-06-25 01:39] LABS: ABSOLUTE BASOPHILS 0.1 thou/uL (0.0-0.2); ABSOLUTE EOSINOPHILS 0.1 thou/uL (0.0-0.7); ABSOLUTE LYMPHOCYTES 0.7 thou/uL (0.8-5.3); ABSOLUTE MONOCYTES 0.7 thou/uL (0.0-1.2); ABSOLUTE NEUTROPHILS 8.8 thou/uL (1.6-8.1); BASOPHILS 0.6 %; EOSINOPHILS 1.4 %; HEMATOCRIT 35.1 % (37.0-47.0); HEMOGLOBIN 11.6 gm/dL (12.0-15.0); LYMPHOCYTES 6.5 %; MCH 28.7 pg (26.0-34.0); MONOCYTES 6.8 %; MPV 6.7 fl. (7.2-11.1); NUCLEATED RBCS 0 /100WBC; PLATELET COUNT* 298 thou/uL (150-400); POLYS 84.7 %; RBC 4.04 mil/uL (4.20-5.00); RDW-CV 16.4 % (10.5-14.5); WBC 10.4 thou/uL (4.0-11.0)
[2021-06-25 01:52] LABS: CALCIUM 8.5 mg/dL (8.5-10.1); CREATININE 1.4 mg/dL (0.6-1.3); POTASSIUM 3.5 mmol/L (3.5-5.1)
[2021-06-25 02:02] LABS: ALBUMIN 3.4 g/dL (3.4-5.0); MAGNESIUM 1.7 mg/dL (1.8-2.4); TOTAL BILIRUBIN 0.6 mg/dL (<0.1-1.0); TOTAL PROTEIN 6.7 g/dL (6.4-8.2)
[2021-06-25 03:39] LABS: URINE BILIRUBIN NEGATIVE (Negative); URINE BLOOD 1+ (Negative); URINE CLARITY CLEAR; URINE COLOR YELLOW; URINE GLUCOSE-RANDOM NEGATIVE (Negative); URINE KETONES TRACE (Negative); URINE LEUKOCYTES-REFLEX NEGATIVE (Negative); URINE NITRITE-REFLEX NEGATIVE (Negative); URINE PROTEIN TRACE (Negative); URINE UROBILINOGEN 0.2 E.U./dl (0.2-1.0)
[2021-06-25 03:50] LABS: SQUAMOUS 0-3 Few /LPF (0-3); TRANSITIONAL EPITHEL CELL 0-3 Few /LPF (None Seen); URINE WBC-REFLEX 6-15 Few /HPF (0-5)
[2021-06-25 03:51] LABS: BACTERIA-REFLEX >30 Many /HPF (None Seen); COARSE GRANULAR CASTS 0-3 Few /LPF (None Seen); CRYSTALS None Seen /LPF (None Seen); FINE GRANULAR CASTS 4-10 Moderate /LPF (None Seen); HYALINE CASTS 4-10 Moderate /LPF (None Seen); MUCUS >6 Heavy strn/LPF (None Seen)
[2021-06-25] MEDS ORDERED: LOPRESSOR50 MG PO (07:38)
--- NOTE | 2021-06-25 14:37 | EKG ---
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: [place] : 1945 Requested By: Tabitha Arciniega Order Number: [id number] MD: Luís Vizcaino Measurements Intervals [place] Rate: 79 P: 70 SD: 156 QRS: -42 QRSD: 102 T: -10 QT: 420 QTc: 482 Interpretive Statements Sinus rhythm RSR' in V1 or V2, right VCD Inferior infarct, old suggested Baseline wander in lead(s) V3 Compared to ECG 06/14/2021 14:34:33 IVCD persists Myocardial infarct finding still suggested T-wave abnormality persists Electronically Signed On 06-25-2021 14:37:13 CDT by Luís Vizcaino [email or web address] <ELECTRONICALLY SIGNED> By: Luís Vizcaino MD, [facility] 06/25/21 1437 7 7 Luís Vizcaino MD, [facility] /EPI
[2021-06-26] VITALS: BP 100/62
[2021-06-26 04:00] VITALS: BP 104/67
[2021-06-26 04:30] LABS: HEMATOCRIT 32.7 % (37.0-47.0); HEMOGLOBIN 10.7 gm/dL (12.0-15.0); MCH 28.5 pg (26.0-34.0); MCHC 32.8 g/dL (28.0-37.0); MCV 86.9 fL (80.0-100.0); MPV 7.2 fl. (7.2-11.1); RBC 3.76 mil/uL (4.20-5.00); WBC 9.9 thou/uL (4.0-11.0)
[2021-06-26 04:40] LABS: CALCIUM 8.2 mg/dL (8.5-10.1); POTASSIUM 3.3 mmol/L (3.5-5.1)
[2021-06-26 08:00] VITALS: BP 104/64
[2021-06-26 11:58] VITALS: BP 106/71
[2021-06-26 17:00] VITALS: BP 102/61
[2021-06-26 20:00] VITALS: BP 109/53
[2021-06-27] VITALS: BP 102/65
[2021-06-27 04:00] VITALS: BP 95/58
[2021-06-27 05:18] LABS: HEMATOCRIT 33.9 % (37.0-47.0); MCH 28.6 pg (26.0-34.0); MCHC 32.6 g/dL (28.0-37.0); MCV 87.7 fL (80.0-100.0); MPV 7.5 fl. (7.2-11.1); RBC 3.86 mil/uL (4.20-5.00); WBC 8.9 thou/uL (4.0-11.0)
[2021-06-27 05:23] LABS: CALCIUM 8.4 mg/dL (8.5-10.1); CREATININE 1.1 mg/dL (0.6-1.3); POTASSIUM 4.2 mmol/L (3.5-5.1)
[2021-06-27 05:25] LABS: MAGNESIUM 2.1 mg/dL (1.8-2.4); POTASSIUM 4.2 mmol/L (3.5-5.1)
[2021-06-27 08:45] VITALS: BP 98/57
[2021-06-27] MEDS ORDERED: DEMADEX20 MG PO (09:57)
[2021-06-27 11:53] VITALS: BP 96/63
[2021-06-27 20:00] VITALS: BP 99/56
[2021-06-28] VITALS: BP 104/53
[2021-06-28 04:00] VITALS: BP 114/63
[2021-06-28 04:52] LABS: HEMOGLOBIN 10.6 gm/dL (12.0-15.0); MCH 28.7 pg (26.0-34.0); MCV 86.7 fL (80.0-100.0); MPV 7.3 fl. (7.2-11.1); RBC 3.69 mil/uL (4.20-5.00); RDW-CV 16.5 % (10.5-14.5); WBC 10.1 thou/uL (4.0-11.0)
[2021-06-28 04:57] LABS: CALCIUM 8.3 mg/dL (8.5-10.1); CREATININE 1.2 mg/dL (0.6-1.3)
[2021-06-28 09:00] VITALS: BP 121/65
[2021-06-28 20:00] VITALS: BP 110/66
[2021-06-28 23:32] VITALS: BP 95/58
[2021-06-29 03:26] VITALS: BP 100/63
[2021-06-29 04:22] LABS: HEMATOCRIT 30.9 % (37.0-47.0); HEMOGLOBIN 10.1 gm/dL (12.0-15.0); MCH 28.5 pg (26.0-34.0); MCHC 32.6 g/dL (28.0-37.0); MCV 87.7 fL (80.0-100.0); MPV 7.4 fl. (7.2-11.1); RBC 3.52 mil/uL (4.20-5.00); WBC 8.5 thou/uL (4.0-11.0)
[2021-06-29 04:25] LABS: CALCIUM 8.4 mg/dL (8.5-10.1); CREATININE 1.2 mg/dL (0.6-1.3); POTASSIUM 3.4 mmol/L (3.5-5.1)
[2021-06-29 08:00] VITALS: BP 114/76
[2021-06-29] MEDS ORDERED: LOPERAMIDE 2 MG2 M1 PO (11:25)
[2021-06-29 13:06] VITALS: BP 114/76
[2021-06-29 13:42] VITALS: BP 114/76
== END 2021-06-29 15:53 | disposition home health service (06) | DRG 291 ==
LOC: M.ERS 01:16 → M.TBA-ER 02:11 → M.ORTHSURG 02:11 → M.TBA-ER 11:03 → M.ORTHSURG 13:35
PROVIDERS: Emergency Medicine; Family Medicine; ADMIT Internal Medicine; ATTEND Internal Medicine
DX: I50.33 Acute on chronic diastolic (congestive) heart failure (principal); J96.01 Acute respiratory failure with hypoxia; N17.0 Acute kidney failure with tubular necrosis; Z20.822 Contact with and (suspected) exposure to COVID-19; Z90.49 Acquired absence of other specified parts of digestive tract; F41.9 Anxiety disorder, unspecified; E78.00 Pure hypercholesterolemia, unspecified; J45.909 Unspecified asthma, uncomplicated; K21.9 Gastro-esophageal reflux disease without esophagitis; I35.0 Nonrheumatic aortic (valve) stenosis; F20.9 Schizophrenia, unspecified; I27.20 Pulmonary hypertension, unspecified; J44.9 Chronic obstructive pulmonary disease, unspecified; K58.9 Irritable bowel syndrome, unspecified; Z79.899 Other long term (current) drug therapy; Z79.82 Long term (current) use of aspirin; Z28.21 Immunization not carried out because of patient refusal

== ENCOUNTER 2021-07-16 10:31 | Inpatient (IN) | payer OTHER, MEDICAID ==
[~2021-07-16] VITALS: Ht 149.9 cm; Wt 65.5 kg
[~2021-07-16 10:31] MED LIST changes: +LOPERAMIDE 2 MG2 M1 PO; +LOPRESSOR50 MG PO
[2021-07-16 10:36] VITALS: BP 89/60
[2021-07-16 10:53] LABS: ABSOLUTE LYMPHOCYTES 0.5 thou/uL (0.8-5.3); ABSOLUTE MONOCYTES 0.3 thou/uL (0.0-1.2); ABSOLUTE NEUTROPHILS 5.5 thou/uL (1.6-8.1); BASOPHILS 0.6 %; EOSINOPHILS 0.1 %; HEMATOCRIT 34.2 % (37.0-47.0); MCH 28.5 pg (26.0-34.0); MCV 88.9 fL (80.0-100.0); MONOCYTES 5.1 %; MPV 7.5 fl. (7.2-11.1); NUCLEATED RBCS 0 /100WBC; PLATELET COUNT* 265 thou/uL (150-400); POLYS 86.2 %; RBC 3.85 mil/uL (4.20-5.00); RDW-CV 16.7 % (10.5-14.5); WBC 6.4 thou/uL (4.0-11.0)
[2021-07-16 10:59] LABS: CALCIUM 8.5 mg/dL (8.5-10.1); CREATININE 1.5 mg/dL (0.6-1.3)
[2021-07-16 11:15] LABS: ALBUMIN 3.3 g/dL (3.4-5.0); TOTAL BILIRUBIN 0.7 mg/dL (<0.1-1.0)
--- NOTE | 2021-07-16 11:26 | EKG ---
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 : 1945 Requested By: Juanito Ramey Order Number: [id number] MD: Harshad Alvarez Measurements Intervals [place] Rate: 64 P: 19 MD: 157 QRS: -42 QRSD: 94 T: -9 QT: 427 QTc: 441 Interpretive Statements Sinus rhythm RsR' in V1 poor r wave progression Left axis deviation Borderline T abnormalities, inferior leads Compared to ECG 06/25/2021 01:28:53 no change Electronically Signed On 07-16-2021 11:26:28 CDT by Harshad Alvarez [email or web address] <ELECTRONICALLY SIGNED> By: Harshad Alvarez MD, FACC 07/16/21 1126 1041 1041 Harshad Alvarez MD, [facility] /EPI
[2021-07-16] MEDS ORDERED: DEMADEX20 MG PO (12:56)
[2021-07-16 16:56] VITALS: BP 86/70
[2021-07-16 17:30] VITALS: BP 97/64
[2021-07-16 20:00] VITALS: BP 100/72
[2021-07-17] VITALS: BP 98/51
[2021-07-17 04:09] LABS: CALCIUM 8.4 mg/dL (8.5-10.1); CREATININE 1.5 mg/dL (0.6-1.3); POTASSIUM 3.9 mmol/L (3.5-5.1)
[2021-07-17 04:43] VITALS: BP 95/55
--- NOTE | 2021-07-17 06:51 | NUR ---
PT AO X4 COMPLETED ASSESSMENT WITH EYES CLOSED BUT ANSWERED ALL QUESTIONS. LUNGS DIMINISHED WITH NO COUGH NOTED, PT HAS 2+ PITTING EDEMA IN BLE. SKIN IS TIGHT AND SHINY. PT BP HAS BEEN SOFT BUT PT ASYMPTOMATIC. SHE HAS SLEPT MOST OF THIS PM SHIFT. PUREWICK IN PLACE FOR PT COMFORT. CALL LIGHT IN REACH, BED ALARM FOR PT SAFETY
[2021-07-17 08:00] VITALS: BP 98/59
[2021-07-17 11:30] VITALS: BP 118/70
[2021-07-17 16:00] VITALS: BP 118/76
[2021-07-17 20:07] VITALS: BP 117/75
[2021-07-18 00:27] VITALS: BP 91/58
[2021-07-18 04:04] LABS: HEMATOCRIT 31.4 % (37.0-47.0); HEMOGLOBIN 10.2 gm/dL (12.0-15.0); MCH 28.9 pg (26.0-34.0); MCHC 32.3 g/dL (28.0-37.0); MCV 89.6 fL (80.0-100.0); MPV 7.7 fl. (7.2-11.1); RBC 3.51 mil/uL (4.20-5.00); RDW-CV 16.1 % (10.5-14.5); WBC 8.2 thou/uL (4.0-11.0)
[2021-07-18 04:18] VITALS: BP 94/55
[2021-07-18 04:21] LABS: CALCIUM 8.6 mg/dL (8.5-10.1); CREATININE 1.3 mg/dL (0.6-1.3); MAGNESIUM 2.2 mg/dL (1.8-2.4); POTASSIUM 3.7 mmol/L (3.5-5.1)
[2021-07-18 04:25] LABS: CALCIUM 8.6 mg/dL (8.5-10.1); CREATININE 1.3 mg/dL (0.6-1.3); POTASSIUM 3.9 mmol/L (3.5-5.1)
[2021-07-18 08:00] VITALS: BP 104/62
[2021-07-18 12:00] VITALS: BP 110/72
[2021-07-18 16:00] VITALS: BP 108/66
[2021-07-18 19:54] VITALS: BP 114/64
[2021-07-19] VITALS (9 sets, daily range): BP systolic 78–967; BP diastolic 48–68
--- NOTE | 2021-07-19 01:48 | NUR ---
ASSESSMENT CHARTED ON 07/18/21 AT 0104 TIME IS INCORRECT. CORRECT TIME AND DATE IS 07/18/21 AT 2050.
[2021-07-19 03:57] LABS: HEMATOCRIT 31.7 % (37.0-47.0); HEMOGLOBIN 10.3 gm/dL (12.0-15.0); MCH 29.2 pg (26.0-34.0); MCHC 32.5 g/dL (28.0-37.0); MCV 90.1 fL (80.0-100.0); MPV 7.7 fl. (7.2-11.1); RBC 3.52 mil/uL (4.20-5.00); RDW-CV 16.3 % (10.5-14.5); WBC 8.2 thou/uL (4.0-11.0)
[2021-07-19 04:13] LABS: CALCIUM 8.5 mg/dL (8.5-10.1); CREATININE 1.4 mg/dL (0.6-1.3); POTASSIUM 3.9 mmol/L (3.5-5.1)
--- NOTE | 2021-07-19 10:38 | NUR ---
ADMISSION ASSESSMENT July CHAD TIERNEY RECEIVED INFO: PATIENT ADMITTED FROM: HOME BY AMBULANCE MENTAL STATUS: ALERT AND ORIENTED X 3 LIVING ARRANGEMENT: INDEPENT LIVING APARTMENT SUPPORT SYSTEM: SISTER: SERGE CAMARENA PHONE: [phone] CAN RETURN TO PRIOR: REHAB VS. SKILLED ADL'S: INDEPENDENT SISTER TAKES HER SHOPPING FOR FOOD [facility] DELIVERY ASSISTIVE DEVICES: APRIA FOR OXYGEN 4L/NC USES A WALKER PRIOR RESOURCES: [facility] PCP: DR. Charis FLANNERY
--- NOTE | 2021-07-19 12:57 | CON ---
[address] [address] CONSULTATION Name: CHAD TIERNEY Room: [address] IN M.R.#: [id number] Admission: 07/16/21 Attend Phys: Estephanie Swift Discharge: Date of : 43 Report #: [id number] THIS REPORT FOR: cc: Bradly Chapa Vincent R. DO Blick, David R. MD [facility] ~ cc: César Magana MD DATE OF CONSULTATION: 07/16/2021 CARDIOLOGY CONSULTATION HISTORY OF PRESENT ILLNESS: The patient is a 76-year-old single white female who I was asked to see in the Emergency Room today after she complained to being short of breath. The patient is followed by my partner, Dr. Luís Vizcaino. She has a history of mild aortic stenosis. She has had recurrent admissions here to [facility] with diastolic heart failure and COPD. She does have oxygen at home. The patient was last admitted here to [facility] 2 weeks ago with diastolic heart failure, urinary tract infection. She was sent home. She was brought back to the emergency room today by paramedics. She complained to being short of breath. She denies any medical noncompliance. She has been coughing and noticed some edema. Cardiology consultation requested. She denies any recent chest pain. She has noticed some rapid heartbeats, but no syncope. PAST MEDICAL HISTORY: She has had previous removal of a skin cancer, appendectomy, cataract extraction. She has a history of glaucoma. She has a history of schizophrenia, but does not see a psychiatrist. She has COPD, hyperlipidemia. MEDICATIONS: On admission include carvedilol, Celexa, Lasix, hydrocodone, inhaler, Risperdal, simvastatin. ALLERGIES: She has no known drug allergies. FAMILY HISTORY: Negative for heart disease. SOCIAL HISTORY: She is , lives with herself here in [place]. No smoking, alcohol abuse. REVIEW OF SYSTEMS: She has had no history of stroke, liver disease, kidney disease, chronic skin condition. PHYSICAL EXAMINATION: GENERAL: Revealed an elderly female lying in bed. [place] [address] CONSULTATION Name: CHAD TIERNEY Room: [address]#: [id number] Admission: 07/16/21 Attend Phys: Estephanie Swift Discharge: Date of : 43 Report #: [id number] VITAL SIGNS: She had a blood pressure of 110/70, pulse is 80. She is afebrile. HEENT: She was anicteric, conjunctiva pink. Mucous membranes are moist. NECK: Veins not appear distended. CHEST: Revealed expiratory prolonged phase. HEART: Regular rate and rhythm. Grade 3 systolic ejection murmur along the left sternal border. ABDOMEN: Obese. EXTREMITIES: Had no pitting edema. Dorsalis pedis pulse cannot be palpated. SKIN: Cool and dry. NEUROLOGIC: Nonfocal. Her ECG on admission showed a sinus rhythm. There was no significant ST or T-wave change noted. The patient actually had an echocardiogram done last month here at [facility]. The aortic valve gradient was 28 mmHg consistent with mild aortic stenosis. Ejection fraction of 60%. There was left ventricular hypertrophy, left atrial enlargement, moderate mitral regurgitation, severe pulmonary hypertension with a pulmonary artery pressure 75 mmHg. The patient had a portable chest x-ray in the emergency room today that showed cardiomegaly, vascular congestion. She actually had a CT scan of the chest last month when she was here that showed no pulmonary embolus, interstitial infiltrates, cardiomegaly, coronary artery calcification. Her lab work, BUN 31, creatinine 1.5. Her high sensitivity troponin was 104. BNP 16,298, hematocrit 34.2. COVID antigen stat test was negative. IMPRESSION AND RECOMMENDATIONS: 1. Eyypl-rl-hpihqvs diastolic heart failure. Recommend Lasix. 2. Mild aortic stenosis. 3. Schizophrenia. 4. Hyperlipidemia. The patient is on a statin drug. 5. Obesity. The patient is 4 feet 11 inches and weighs 137 pounds. <ELECTRONICALLY SIGNED> By: Harshad Alvarez MD, FACC 07/19/21 1257 1424 [id number] Alvarez MD, FACC /nt
--- NOTE | 2021-07-19 16:09 | 2DMMODE ---
[place] [address] 2 D/M-MODE ECHOCARDIOGRAM Name: NIALLCHAD Room: [address] IN [facility]#: [id number] Admission: 07/16/21 Attend Phys: Tony Lobo Discharge: Date of : 43 Date of Service: 07/19/21 1609 Report #: [id number] THIS REPORT FOR: cc: Bradly Chapa,Bradly Mendez,Isaías Woodruff MD [facility] ~ APPROVED REPORT Study performed: 07/19/2021 14:19:55 EXAM: Comprehensive 2D, Doppler, and color-flow Echocardiogram Patient Location: In-Patient Room #: [facility] Status: routine BSA: 1.63 HR: 75 bpm BP: 103/58 mmHg Rhythm: NSR Other Information Study Quality: Good Indications Congestive Heart Failure 2D Dimensions IVSd: 11.10 (7-11mm) LVOT Diam: 19.94 (18-24mm) LVDd: 49.26 mm PWd: 10.25 (7-11mm) Ascending Ao: 30.22 (22-36mm) LVDs: 32.48 (25-40mm) Aortic Root: 30.90 mm Volumes Left Atrial Volume (Systole) LA ESV Index: 73.10 mL/m2 Aortic Valve AoV Peak Morales.: 2.14 m/s AO Peak Gr.: 18.29 mmHg LVOT Max P.52 mmHg AO Mean Gr.: 10.52 mmHg LVOT Mean P.18 mmHg LVOT Max V: 0.79 m/s AO V2 VTI: 35.09 cm LVOT Mean V: 0.50 m/s SERGE (VTI): 1.23 cm2 LVOT V1 VTI: 13.86 cm AI Travis: 1.75 m/s2 [place] [address] 2 D/M-MODE ECHOCARDIOGRAM Name: CHAD TIERNEY Room: [address] IN .R.#: [id number] Admission: 07/16/21 Attend Phys: Tony Lobo Discharge: Date of : 43 Date of Service: 07/19/21 1609 Report #: [id number] AI PHT: 570.41 ms Mitral Valve MV Mean Gr.: 2.90 mmHg E/A Ratio: 1.66 MV Decel. Time: 232.80 ms MV E Max Morales.: 1.29 m/s MV PHT: 67.51 ms MVA (PHT): 3.26 cm2 TDI E/Lateral E': 9.21 E/Medial E': 9.21 Medial E' Morales.: 0.14 m/s Lateral E' Morales.: 0.14 m/s Pulmonary Valve PV Peak Morales.: 1.39 m/s PV Peak Gr.: 7.67 mmHg Tricuspid Valve RAP Estimate: 15.00 mmHg TR Peak Gr.: 56.44 mmHg RVSP: 71.00 mmHg PA Pressure: 71.00 mmHg Left Ventricle The left ventricle is normal size. There is normal LV segmental wall motion. There is normal left ventricular wall thickness. Left ventricular systolic function is normal. LVEF is 55-60%. Transmitral Doppler flow pattern suggests restrictive physiology. Right Ventricle Right ventricle is moderately dilated. The right ventricular systolic function is normal. Atria Left atrium is moderately dilated. Right atrium is moderately dilated. Aortic Valve Severe aortic valve sclerosis. Mild aortic regurgitation. Moderate aortic stenosis. Mitral Valve There is mitral annular calcification. Moderate mitral regurgitation. Mild mitral stenosis. Tricuspid Valve The tricuspid valve is normal in structure[place] [address] 2 D/M-MODE ECHOCARDIOGRAM Name: CHAD TIERNEY Room: [address] IN [facility]#: [id number] Admission: 07/16/21 Attend Phys: Tony Lobo Discharge: Date of : 43 Date of Service: 07/19/21 1609 Report #: [id number] regurgitation. Severe pulmonary hypertension. The RVSP is 75 mmHg. Pulmonic Valve The pulmonary valve is normal in structure. Mild pulmonic regurgitation. Great Vessels The aortic root is normal in size. IVC is dilated and collapses <50% with inspiration. Pericardium There is no pericardial effusion. Left pleural effusion. <Conclusion> The left ventricle is normal size. There is normal left ventricular wall thickness. Left ventricular systolic function is normal. LVEF is 55-60%. Transmitral Doppler flow pattern suggests restrictive physiology. Right ventricle is moderately dilated. Left atrium is moderately dilated. Right atrium is moderately dilated. Severe aortic valve sclerosis. Mild aortic regurgitation. Moderate aortic stenosis. There is mitral annular calcification. Moderate mitral regurgitation. Mild mitral stenosis. Moderate tricuspid regurgitation. Severe pulmonary hypertension. The RVSP is 75 mmHg. Mild pulmonic regurgitation. IVC is dilated and collapses <50% with inspiration. Left pleural effusion. <ELECTRONICALLY SIGNED> By: Isaías Quarles MD, FACC 07/19/21 1609 1609 1609 Isaías Quarles MD, FACC /INF
[2021-07-20] VITALS (8 sets, daily range): BP systolic 85–164; BP diastolic 55–73
[2021-07-20 04:10] LABS: HEMATOCRIT 32.6 % (37.0-47.0); HEMOGLOBIN 10.4 gm/dL (12.0-15.0); MCH 28.7 pg (26.0-34.0); MCV 89.5 fL (80.0-100.0); RBC 3.64 mil/uL (4.20-5.00); RDW-CV 16.1 % (10.5-14.5); WBC 7.7 thou/uL (4.0-11.0)
[2021-07-20 04:30] LABS: CREATININE 1.5 mg/dL (0.6-1.3); MAGNESIUM 2.3 mg/dL (1.8-2.4); PHOSPHORUS* 5.6 mg/dL (2.5-4.9); POTASSIUM 4.1 mmol/L (3.5-5.1)
--- NOTE | 2021-07-20 06:04 | NUR ---
PT AO X2-3 WITH SOME FOREGETFULNESS. SHE IS LYING IN BED WATCHING TV. SHE IS NSR ON TELE WITH LUNGS DIMINISHED THROUGHOUT. PT WAS ON 6L NC BUT APPROX 0000 SATS DROPPED TO 70-80s SUSTAINING FOR SEVERAL MINUTES. I WENT TO BEDSIDE TO ASSESS AND PT WAS SLEEPING, USING MOUTH BREATING, SHE WOKE EASILY AND IN ENCOURAGED HER TO TAKE DEEP BREATHS IN THROUGH NOSE. SATS DID NOT IMPROVE SO I PUT HER ON HIFLOW CANNULA AT 10L TO MAINTAIN SAT>90. PT ABD IS ROUND AND SOFT WITH PT REPORTING LAST BM SEVERAL DAYS AGO. SHEIS GETTING SENNA SCHEDULED DAILY. PT EDEMA IS BETTER WITH BLE 1+ AND ARMS GENERAL NONPITTING EDEMA. PT HAS PUREWICK IN PLACE WITH CLEAR YELLOW OUTPUT. CALL LIGHT IN REACH AND BED ALARM ON FOR PT SAFETY.
--- NOTE | 2021-07-20 15:03 | NUR ---
Case Management Followup CM and providers met to discuss length of stay and discharge. Providers indicated pt not yet medically clear for discharge. Upon discharge, pt to return to independent living aprtment with HH through [facility] ([phone]) and 4l oxygen through [facility]. CM to continue to follow.
--- NOTE | 2021-07-20 17:46 | NUR ---
PATIENT HAD A QUIET DAY. WAS UP TO CHAIR FOR 2 MEALS. PATIENT REMAINS ON O2 6-8LITERS PER NC. PATIENT HAS FAIR APPETITE. UP TO COMMODE WITH ASSIST. HAD LARGE BM. CONTINUES TO USE PUREWICK FOR URINARY INCONTINENCE.
[2021-07-21 04:00] VITALS: BP 104/66
[2021-07-21 04:23] LABS: HEMATOCRIT 32.3 % (37.0-47.0); HEMOGLOBIN 10.3 gm/dL (12.0-15.0); MCH 28.6 pg (26.0-34.0); MCV 89.4 fL (80.0-100.0); MPV 8.3 fl. (7.2-11.1); RBC 3.61 mil/uL (4.20-5.00); RDW-CV 16.1 % (10.5-14.5); WBC 7.6 thou/uL (4.0-11.0)
[2021-07-21 04:41] LABS: CALCIUM 9.1 mg/dL (8.5-10.1); CREATININE 1.3 mg/dL (0.6-1.3); MAGNESIUM 2.3 mg/dL (1.8-2.4); POTASSIUM 3.1 mmol/L (3.5-5.1)
--- NOTE | 2021-07-21 05:58 | NUR ---
pt AO x3 with some memory deficit. pt was moving from chair to bed and dislodged her iv which bled quite a bit requiring pressure dressing to obtain clotting. pt still has general edema 1+ pitting with legs very hard . pt lungs cta/dim with no cough. she is on 6l per nc. she slept well and makes needs known appropriately. call light in reach, bed alarm on for safety
[2021-07-21 08:00] VITALS: BP 106/35
[2021-07-21 12:00] VITALS: BP 114/74
[2021-07-21 15:22] LABS: BE 20.3 mmol/L (-2 to +3); PO2 66.4 mmHg (75.0-100.0); pH 7.491 (7.340-7.450)
[2021-07-21 15:34] LABS: PCO2 62.9 mmHg (35.0-45.0)
--- NOTE | 2021-07-21 15:39 | NUR ---
G REPORTED TO DR GUZMAN VIA TEXT.
--- NOTE | 2021-07-21 15:48 | NUR ---
CALLED DR GUZMAN IN REGARD TO PATIENTS ABG'S. ORDERS NOTED.
[2021-07-21 16:00] VITALS: BP 117/71
--- NOTE | 2021-07-21 18:54 | NUR ---
PATIENT WAS QUIET TODAY, BUT HER RESPIRATORY STATUS HAS WORSENED. O2 5 LITERS PER NC THIS AM. INCREASED TO 6 AND 8 LITERS AROUND 1100 TODAY. BREATH SOUNDS WITH SCATTERED CRACKLES AND DIMINISHED. PATIENT HAD ABG DONE THIS AFTERNOON, AND CALLEDTO DR GUZMAN. SHE WANTS PATIENT ON BIPAP. PCO2 62.9 AND HCO3 47. PLACED ON BIPAP BY ERT AT 1620. BIPAP 14/8, RATE 14 AT 40%. HER SISTER WAS HERE THIS AFTERNOON. I UPDATED HER ON PATIENTS CONDITION AND PLAN OF CARE. SHE HOPES TO TALK WITH DOCTORS TOMORROW. DR GUZMAN IS AWARE. PULMONARY HAS BEEN CONSULTED IN REGARD TO PATIENT PULMONARY STATUS. RESTING AT 1900.
[2021-07-21 19:45] VITALS: BP 109/61
[2021-07-22 00:53] VITALS: BP 93/60
--- NOTE | 2021-07-22 02:45 | NUR ---
ASSUMED CARE OF PT AT 1900. PT IS ALERT AND ORIENTED. VSS. PERRLA. NO COMPLAINTS OF PAIN. PT HAS A PURE WICK IN PLACE. PT IS IN SINUS RYTHM ON THE TELEMETRY. PT IS RESTING COMFORTABLY IN BED. RESPIRATIONS ARE EVEN AND NONLABORED. WILL CONTINUE TO MONITOR PT.
[2021-07-22 04:05] LABS: HEMATOCRIT 31.5 % (37.0-47.0); HEMOGLOBIN 10.4 gm/dL (12.0-15.0); MCH 29.2 pg (26.0-34.0); MCHC 32.9 g/dL (28.0-37.0); MCV 88.6 fL (80.0-100.0); MPV 8.2 fl. (7.2-11.1); RBC 3.55 mil/uL (4.20-5.00); RDW-CV 16.3 % (10.5-14.5); WBC 7.6 thou/uL (4.0-11.0)
[2021-07-22 04:16] LABS: BUN 48 mg/dL (7-18); CALCIUM 9.1 mg/dL (8.5-10.1); CHLORIDE 98 mmol/L (98-107); CREATININE 1.2 mg/dL (0.6-1.3); GLUCOSE 101 mg/dL (70-99); SODIUM 147 mmol/L (136-145)
[2021-07-22 04:18] VITALS: BP 91/56
[2021-07-22 04:56] LABS: CO2 > 45 mmol/L (21-32)
[2021-07-22 08:00] VITALS: BP 106/60
[2021-07-22 12:12] VITALS: BP 90/61
--- NOTE | 2021-07-22 14:26 | NUR ---
pt's sister giovany is requesting notary for dpoa. giovany has concerns about pt dx of "pulmonary hypertension" and wants to spk with MD, possibly wanting to have pt transfer to ." cm faxed dr estrada with giovany burns [phone].
[2021-07-22 15:56] VITALS: BP 99/67
[2021-07-22 20:00] VITALS: BP 103/65
[2021-07-22 21:17] LABS: CALCIUM 8.9 mg/dL (8.5-10.1); CREATININE 1.2 mg/dL (0.6-1.3); MAGNESIUM 2.1 mg/dL (1.8-2.4); POTASSIUM 3.8 mmol/L (3.5-5.1)
[2021-07-23] VITALS (7 sets, daily range): BP systolic 91–1001; BP diastolic 55–67
[2021-07-23 05:18] LABS: HEMATOCRIT 32.2 % (37.0-47.0); HEMOGLOBIN 10.5 gm/dL (12.0-15.0); MCHC 32.7 g/dL (28.0-37.0); MCV 88.5 fL (80.0-100.0); MPV 8.5 fl. (7.2-11.1); NUCLEATED RBCS 0 /100WBC; PLATELET COUNT* 159 thou/uL (150-400); RBC 3.63 mil/uL (4.20-5.00); RDW-CV 16.3 % (10.5-14.5); WBC 3.7 thou/uL (4.0-11.0)
[2021-07-23 05:29] LABS: APTT 26.2 Seconds (25.0-31.3); INR 1.1; PROTIME 10.9 Seconds (9.20-11.50)
[2021-07-23 05:34] LABS: ALBUMIN 2.6 g/dL (3.4-5.0); ALKALINE PHOSPHATASE 250 U/L (46-116); BUN 56 mg/dL (7-18); CALCIUM 8.6 mg/dL (8.5-10.1); CHLORIDE 96 mmol/L (98-107); CREATININE 1.4 mg/dL (0.6-1.3); GLUCOSE 163 mg/dL (70-99); MAGNESIUM 2.2 mg/dL (1.8-2.4); SGOT 34 U/L (15-37); SGPT 50 U/L (30-65); SODIUM 143 mmol/L (136-145); TOTAL BILIRUBIN 0.4 mg/dL (<0.1-1.0); TOTAL PROTEIN 6.1 g/dL (6.4-8.2)
[2021-07-23 05:36] LABS: CO2 > 45 mmol/L (21-32)
[2021-07-23 06:16] LABS: ABSOLUTE LYMPHOCYTES 0.2 thou/uL (0.8-5.3); ABSOLUTE MONOCYTES 0.1 thou/uL (0.0-1.2); ABSOLUTE NEUTROPHILS 3.4 thou/uL (1.6-8.1); PLATELET ESTIMATE ADEQUATE
--- NOTE | 2021-07-23 07:39 | CON ---
[address] [address] CONSULTATION Name: CHAD TIERNEY Room: [address] IN M.R.#: [id number] Admission: 07/16/21 Attend Phys: Estephanie Swift Discharge: Date of : 43 Report #: [id number] THIS REPORT FOR: cc: Bradly Chapa Vincent R. DO Pervez, Adeel MD ~ DATE OF CONSULTATION: 07/22/2021 REQUESTING PHYSICIAN: Dr. Lobo. INDICATION FOR CONSULTATION: Acute hypoxemic respiratory failure and hypercarbia. HISTORY OF PRESENT ILLNESS: A 76-year-old female. She has a history of congestive heart failure secondary to diastolic dysfunction. She also does have valvular abnormalities as described below and she has pulmonary hypertension, which is at least present since the beginning of this year. She carries a diagnosis of COPD; however, I do not see any definite evidence. She is reported to be a lifetime nonsmoker. She does use oxygen at home. At this time, the patient was initially admitted on 07/16, she initially was having acute renal insufficiency with a creatinine elevated to 1.5. She has also been fluid overloaded and she has been diuresed. Also, she has been treated with azithromycin as well as ceftriaxone. She has been stable on nasal cannula. There is some increase in oxygen needs today from 5 liters to 8 liters. The patient had an arterial blood gas performed, which was elevated pCO2. This was reason that she was placed on BiPAP. She is currently on a BiPAP with 40% FiO2. She appears to be comfortable with it. She does have some mild swelling of lower extremities; however, there is wrinkling on lower extremities indicating reduction in pedal edema recently. REVIEW OF SYSTEMS: The patient's review of systems for 12 points is negative except as mentioned above; however, due to the presence of BiPAP communication is limited. PAST MEDICAL HISTORY: Congestive heart failure secondary to diastolic dysfunction. There is a recent echocardiogram, which also does show moderate aortic stenosis and mild aortic regurgitation. There is an elevation in pulmonary artery systolic to 71 on this. The patient does have elevated pulmonary artery pressures on echocardiogram was performed earlier this year, the same finding is not present on the echocardiogram performed in 2018. COPD as mentioned on the record; however, I do not see any definite evidence. She does use oxygen at home, skin cancer removal, appendectomy, cataract extraction, [place] [address] CONSULTATION Name: CHAD TIERNEY Room: [address] IN [facility]#: [id number] Admission: 07/16/21 Attend Phys: Estephanie Swift Discharge: Date of : 43 Report #: [id number] glaucoma, schizophrenia and hyperlipidemia. SOCIAL HISTORY: There is no known history of smoking, ethanol abuse, or drug abuse. CURRENT MEDICATIONS: List in [facility] reviewed. HOME MEDICATIONS: List in [facility] reviewed. ALLERGIES: No known drug allergies. FAMILY HISTORY: No pertinent family history known at this time. PHYSICAL EXAMINATION: GENERAL: She is fully awake; however, communication is limited due to the presence of BiPAP. VITAL SIGNS: Pulse of 81 and a blood pressure of 106/60. She is on 40% FiO2 with a BiPAP in place, is saturating in the high 90s. Her respiratory rate was in the high teens to 20. She is afebrile with a temperature of 36.3. HEENT: Head is normocephalic and atraumatic. Pupils are equal and reactive. There is no throat erythema. Throat examination; however, is limited to the presence of BiPAP. NECK: Does show some prominent veins, but there is no palpable mass or asymmetry. CHEST: Breath sounds are bilaterally equal. No added sounds. HEART: Regular. There is a systolic murmur, 2-3/6 systolic. ABDOMEN: Soft and nontender. EXTREMITIES: Lower extremities, 1+ edema, no calf tenderness. Skin is dry and intact; there is some wrinkling of lower extremities. NEUROLOGIC: Moves all extremities bilaterally equally and spontaneously with no focal deficit identified. LABORATORY DATA: The patient's chest x-rays are reviewed. Initial chest x-ray performed on the does show increase in pulmonary vascular congestion. This has improved on the x-ray performed yesterday. There are some pulmonary infiltrates as well. There is a band-like atelectasis noted on the right side. The patient's lab work is in [facility] and this is reviewed. ASSESSMENT AND PLAN: 1. Hypercarbia secondary to metabolic alkalosis. I reviewed her arterial blood gas as well as lab work. At first glance, the primary etiology does not appear to be hypercarbic respiratory failure. Elevation in pCO2 is due to metabolic alkalosis and hypokalemia. I would primarily treat this by [address] [place] [address] CONSULTATION Name: CHAD TIERNEY Room: [address] IN [facility].#: [id number] Admission: 07/16/21 Attend Phys: Estephanie Swift Discharge: Date of : 43 Report #: [id number] correcting her potassium. If despite of potassium level, the pCO2 retention persists, then I will subsequently consider giving her Diamox. I ordered 2 doses of potassium. I am told by the nurse that she is able to take orally; so we will give her 40 mEq p.o. q.4 hours x 2. I will repeat labs and subsequently. 2. Ycupn-fb-wzugopd hypoxemic respiratory failure. Note that her baseline pCO2 is normal at 35-40, would be reasonable to keep her on BiPAP while asleep for now. She could be taken off BiPAP while awake if tolerated. Agree with giving her a Solu-Medrol as well as nebulized bronchodilators and budesonide as she may have a component of bronchospasm. However, I do not see any definite evidence of chronic obstructive pulmonary disease, although the diagnosis is listed on the records, there is also mention of asthma on the records. 3. Severe pulmonary hypertension. This appears to have developed earlier this year and this progressively increasing on serial echocardiograms. This could be secondary to congestive heart failure; however, I agree that thromboembolism would be possible and needs to be ruled out. There is a CT chest already ordered. I recommend that we obtain venous Dopplers as well. 4. Yaxqs-nm-bbhmirf diastolic congestive heart failure and also congestive heart failure secondary to valvular abnormalities. She will need more diuresis as above. I would correct her potassium first and then assess as to which diuresis will be optimal for her, therefore, I for now discontinued her torsemide. 5. Hypernatremia at the same time I plan to give her diuresis I will also give her D5W. She has also been started on Solu-Medrol. We will watch glucoses closely and will also order an insulin sliding scale. 6. Acute renal insufficiency; this already appears to be resolving, follow creatinine closely. 7. Lung Infiltrates. Current antibiotics 8. Atelactasis. BiPAP as above, add Mucomyst. 9. Deep venous thrombosis prophylaxis. She is on Lovenox. 10. Gastrointestinal prophylaxis. She is already on Protonix. 11. Clostridium difficile prophylaxis. We will order Lactinex. Thanks for this consultation. <ELECTRONICALLY SIGNED> By: Loco Masters MD 07/23/21 0739 1119 Ganga Masters MD /nt
[2021-07-23 08:14] LABS: BE 16.1 mmol/L (-2 to +3)
[2021-07-23 08:19] LABS: PCO2 61.6 mmHg (35.0-45.0)
[2021-07-23 09:05] LABS: CREATININE 1.4 mg/dL (0.6-1.3); POTASSIUM 4.1 mmol/L (3.5-5.1)
--- NOTE | 2021-07-23 10:15 | NUR ---
CM SPOKE TO THE PT PER PT AND SERGE'S (PT'S SISTER) REQUEST TO DISCUSS DPOA FOR HEALTHCARE. PT CONFIRMS KNOWLEDGE OF WHAT DPOA FOR HEALTHCARE IS. PT ANSWERS 3 ORIENTATION QUESTIONS APPROPRIATELY. PT REQUEST HER SISTER SERGE CAMARENA HER AGENT AND NO OTHER PERSON HER DPOA FOR HEALTHCARE. CM NOTARIZED DPOA FORM, PROVIDED PT WITH ORIGINAL AND MULTIPLE COPIES, AND PLACED COPY OF FORM ON THE CHART. RN INFORMED. CM WILL REMAIN AVAILABLE TO ASSIST AND FOLLOW NEEDED.
--- NOTE | 2021-07-23 13:55 | NUR ---
Nutrition: Pt admitted with SOA. Assessed for LOS. BG 156, albumin 2.6. Heart healthy diet, eating 100%. Pt is at her usual wt near 150#. No nutrition concerns. Low risk.
[2021-07-23 15:52] LABS: CALCIUM 8.5 mg/dL (8.5-10.1); CREATININE 1.9 mg/dL (0.6-1.3); MAGNESIUM 2.3 mg/dL (1.8-2.4); POTASSIUM 4.3 mmol/L (3.5-5.1)
[2021-07-23 16:05] LABS: BF RBC 11762 /mm3; TOTAL CELL COUNT 347 /mm3
[2021-07-23 16:23] LABS: CLARITY CLOUDY; TOTAL VOLUME 400 ml
[2021-07-23 16:54] LABS: SOURCE THORACENTESIS
[2021-07-23 16:59] LABS: BF LYMPHOCYTES 61 %; BF POLYS 39 %; BF TISSUE 6 /100 WBC
--- NOTE | 2021-07-23 18:40 | NUR ---
Assumed care of pt at 0700. Pt assessment completed and documented. VSS, BP on the soft side. Pt is A&OX4, afebrile, no c/o pain. Pt is up with an assistX1 with a walker and gait belt. Pt can ambulate to bedside commode and chair. Lungs are diminished throughout and course in the bilat upper lobes, pt on 5L NC at the start of this RN's shift, pt titrated to 4L NC by RT later in the midmorning. SR is on the monitor, S1S2 heard, 2+ pitting BLE, 2/1 pulses. Pt has normoactive BSX4, abd is SNT, pt's last BM 07/23/21. BM was soft formed. Pt on a bowel regimen. Pt able to void on her own but d/t increasing kidney function needs, provider ordered a Contreras be placed for critical I&Os to monitor kidney function more closely. If pt has less than 25mls/hr of urine, RN is to alert the provider. 16 Fr Contreras placed with ease, with 75mls of straw colored urine return. Pt has no skin issues other than bruising at this time. Ulcer prevention protocol is in place, repositioning pt often. Pt has a PIV 20G to the RFA, with IVF infusing at 50mls/hr, PIV patent. Pt's second PIV, pt had d/c'd this morning, pressure dressing in place. Bed is in low locked position, call light and personal belongings are within reach of the pt. Pt has no questions at this time. Will continue to monitor.
[2021-07-24 04:53] VITALS: BP 95/60
[2021-07-24 06:35] LABS: ABSOLUTE LYMPHOCYTES 0.2 thou/uL (0.8-5.3); ABSOLUTE MONOCYTES 0.2 thou/uL (0.0-1.2); ABSOLUTE NEUTROPHILS 7.2 thou/uL (1.6-8.1); BASOPHILS 0.1 %; HEMATOCRIT 29.9 % (37.0-47.0); HEMOGLOBIN 9.9 gm/dL (12.0-15.0); LYMPHOCYTES 3.2 %; MCH 29.3 pg (26.0-34.0); MCV 88.7 fL (80.0-100.0); MONOCYTES 2.4 %; MPV 8.6 fl. (7.2-11.1); NUCLEATED RBCS 0 /100WBC; PLATELET COUNT* 141 thou/uL (150-400); POLYS 94.3 %; RBC 3.37 mil/uL (4.20-5.00); RDW-CV 16.2 % (10.5-14.5); WBC 7.7 thou/uL (4.0-11.0)
[2021-07-24 07:01] LABS: CALCIUM 8.3 mg/dL (8.5-10.1); CREATININE 2.3 mg/dL (0.6-1.3); MAGNESIUM 2.3 mg/dL (1.8-2.4); TOTAL BILIRUBIN 0.4 mg/dL (<0.1-1.0)
[2021-07-24 08:00] VITALS: BP 104/66
[2021-07-24 12:41] VITALS: BP 92/57
[2021-07-24 14:07] LABS: BODY FLUID PROTEIN 1.5 g/dL (())
[2021-07-24 17:20] VITALS: BP 96/59
--- NOTE | 2021-07-24 19:46 | NUR ---
I ASSUMED CARE OF THE PATIENT AT 0700. BED IS IN THE LOW LOCKED POSITION AND CALL LIGHT IS IN REACH. SHE IS ON BEDREST. SHE IS REPOSITIONED EVERY 2 HOURS. HOURLY ROUNDING IS COMPLETED AND PATIENT NEEDS ARE MET, PAIN IS PARTIALLY RELIEVED WITH PRN MEDS. PATIENT HAD MULTIPLE BOWEL MOVEMENTS TODAY. SHE WAS GIVEN A FULL BED BATH, INCLUDING HAIR AND LINENS WERE CHANGED. BLOOD GLUCOSE WAS MONITORED. LABS ARE MONITORED. NEW ORDERS WERE OBTAINED WITH NEPO CONSULT. WILL CONTINUE TO MONITOR.
[2021-07-25 00:50] VITALS: BP 110/68
[2021-07-25 02:31] LABS: URINE BLOOD 3+ (Negative); URINE CLARITY SL CLOUDY; URINE COLOR BROWN; URINE GLUCOSE-RANDOM NEGATIVE (Negative); URINE KETONES TRACE (Negative); URINE LEUKOCYTES NEGATIVE (Negative); URINE NITRITE NEGATIVE (Negative); URINE PROTEIN 2+ (Negative); URINE SPECIFIC GRAVITY 1.025 (1.005-1.030); URINE UROBILINOGEN 0.2 E.U./dl (0.2-1.0)
[2021-07-25 02:32] LABS: URINE POTASSIUM-RANDOM 59.2 mmol/L
[2021-07-25 02:35] LABS: URINE BILIRUBIN 1+ (Negative)
[2021-07-25 02:37] LABS: ICTOTEST (BILI CONFIRMATORY) Negative (Negative)
[2021-07-25 04:05] LABS: SQUAMOUS 4-10 Moderate /LPF (0-3)
[2021-07-25 04:07] LABS: HYALINE CASTS 0-3 Few /LPF (None Seen); URINE RBC >20 Many /HPF (0-2); URINE WBC 0-5 Rare /HPF (0-5)
[2021-07-25 04:08] LABS: AMORPHOUS URATES Few /LPF (None Seen)
[2021-07-25 04:50] LABS: POTASSIUM 4.3 mmol/L (3.5-5.1)
[2021-07-25 04:52] VITALS: BP 105/61
[2021-07-25 04:55] LABS: CREATININE 3.3 mg/dL (0.6-1.3)
[2021-07-25 08:00] VITALS: BP 112/68
[2021-07-25 12:00] VITALS: BP 103/69
[2021-07-25 16:15] VITALS: BP 112/69
--- NOTE | 2021-07-25 19:03 | NUR ---
PT WENT TO DIALYSIS SUITE AT [address] KHAN WAS CALLED TO GET AN OK TO USE ORDER FOR THE CATHETER. HEP B ANTIGEN ORDERED.
[2021-07-25 20:00] VITALS: BP 101/63
[2021-07-26] VITALS: BP 98/64
[2021-07-26 04:00] VITALS: BP 90/55
[2021-07-26 04:40] LABS: HEMATOCRIT 28.4 % (37.0-47.0); HEMOGLOBIN 9.6 gm/dL (12.0-15.0); NUCLEATED RBCS 0 /100WBC; RBC 3.27 mil/uL (4.20-5.00)
[2021-07-26 04:43] LABS: CALCIUM 7.8 mg/dL (8.5-10.1); CREATININE 2.8 mg/dL (0.6-1.3); MAGNESIUM 2.3 mg/dL (1.8-2.4); PHOSPHORUS* 5.8 mg/dL (2.5-4.9); POTASSIUM 4.6 mmol/L (3.5-5.1); TOTAL BILIRUBIN 0.4 mg/dL (<0.1-1.0); TOTAL PROTEIN 5.8 g/dL (6.4-8.2)
[2021-07-26 04:44] LABS: MCH 29.3 pg (26.0-34.0); MCHC 33.7 g/dL (28.0-37.0); MPV 8.7 fl. (7.2-11.1); PLATELET COUNT* 128 thou/uL (150-400); RDW-CV 16.5 % (10.5-14.5); WBC 9.4 thou/uL (4.0-11.0)
[2021-07-26 05:43] LABS: ABSOLUTE LYMPHOCYTES 0.6 thou/uL (0.8-5.3); ABSOLUTE MONOCYTES 0.3 thou/uL (0.0-1.2); ABSOLUTE NEUTROPHILS 8.6 thou/uL (1.6-8.1)
[2021-07-26 05:44] LABS: PLATELET ESTIMATE DECREASED
[2021-07-26 05:47] LABS: POLYCHROMASIA 1+
--- NOTE | 2021-07-26 06:22 | NUR ---
BASSUMED CARE OFPT AFTER REPORT AT 1930. PT TRANSFERRED TO ROOM FROM DIALYSIS. PT A&OX4. VSS. PHYSICAL ASSESSMENT COMPLETED AND CHARTED. PT ON O2 AT 4LNC/BIPAP AT HS. PT TRACING SR ON TELE. PT TURNED TO SIDES. PT ABLE TO SLEEP WELL ON BED. FALL PRECAUTIONS IN PLACE. CALL LIGHT WITHIN REACH.
[2021-07-26 08:00] VITALS: BP 98/57
--- NOTE | 2021-07-26 11:02 | NUR ---
Nutrition: Pt admitted to COVID unit, respiratory failure. Consult for wounds on coccyx. Spoke with RN. Pt is dialyzing. On heart healthy diet, but she doesn't like it without salt. BUN 61, cr 2.8, alb 3, prealb 18.6. Wt: 150#. RD ordered Beneprotein for added protein since pt dialyzes. Continue at mild risk.
--- NOTE | 2021-07-26 16:28 | NUR ---
Recieved call from HS. Per HS, Dr. Gloria stated that patient family is requesting to transfer to for an eval for pulm HTN. Spoke to Transfer team who stated that they are at full capacity and are not accepting transfers at this time. Doctor updated on above information.
[2021-07-26 16:30] VITALS: BP 95/59
--- NOTE | 2021-07-26 17:25 | NUR ---
CM Followup Pt not medically clear for discharge. Pt recommended to go to skilled when medically clear.
[2021-07-26 20:00] VITALS: BP 112/69
--- NOTE | 2021-07-26 20:57 | NUR ---
I ASSUMED CARE OF THE PATIENT AT 0700. SHE IS ALERT AND ORIENTED X4 AND IS UP WITH ASSIST OF 1, GAIT BELT AND PIVOTS. BED IS IN THE LOW LOCKED POSITION AND CALL LIGHT IS IN REACH. PATIENT NEEDS ARE MET DURING HOURLY ROUNDING AND PAIN IS DENIED. SHE WAS DIALIZED FROM 1135 TO 1430. ISOLATION IS D/C'D WHEN C.DIFF TEST CAME BACK NEGATIVE. SHE STILL HAD MULTIPLE INCONT BOWEL MOVEMENTS. BLOOD GLUCOSE IS MONITORED. SHE WAS REPOSITIONED EVERY 2 HOURS. HARMON OUTPUT WAS ONLY 200 FOR THE SHIFT, BUT LABS ARE IMPROVING. SHE WAS ON CONTINUOUS OXYGEN AND USES A BIPAP AT NIGHT. WILL CONTINUE TO MONITOR.
--- NOTE | 2021-07-26 21:03 | NUR ---
CENTRAL LINE DRESSING WAS REPLACED BY DIALYSIS NURSE AFTER TREATMENT, BUT WAS STILL OOZING AT THE SITE. WILL CONTINUE TO MONITOR AND PASS ON INFORMATION IN REPORT.
[2021-07-27] VITALS: BP 109/68
[2021-07-27 04:00] VITALS: BP 116/77
[2021-07-27 04:52] LABS: HEMATOCRIT 28.4 % (37.0-47.0); HEMOGLOBIN 9.5 gm/dL (12.0-15.0); MCH 29.3 pg (26.0-34.0); MCHC 33.4 g/dL (28.0-37.0); MCV 87.8 fL (80.0-100.0); MPV 8.9 fl. (7.2-11.1); RBC 3.24 mil/uL (4.20-5.00); RDW-CV 16.4 % (10.5-14.5); WBC 7.2 thou/uL (4.0-11.0)
[2021-07-27 05:13] LABS: ALBUMIN 2.8 g/dL (3.4-5.0); CALCIUM 7.7 mg/dL (8.5-10.1); CREATININE 2.2 mg/dL (0.6-1.3); MAGNESIUM 2.2 mg/dL (1.8-2.4); POTASSIUM 4.5 mmol/L (3.5-5.1); TOTAL BILIRUBIN 0.4 mg/dL (<0.1-1.0); TOTAL PROTEIN 5.7 g/dL (6.4-8.2)
--- NOTE | 2021-07-27 07:53 | NUR ---
ASSUMED CARE OF PT AFTER REPORT AT 1930. PT A&OX4. VSS. PHYSICAL ASSESSMENT COMPLETED AND CHARTED. PT ON O2 AT 3-4L NC/BIPAP AT HS. PT TRACING SR ON TELE. PT DENIES ANY PAIN. PT ABLE TO SLEEP WELL ON BED. FALL PRECAUTIONS IN PLACE. CALL LIGHT WITHIN REACH.
[2021-07-27 10:08] LABS: HEPATITIS B SURFACE AG Negative (Negative)
[2021-07-27 11:45] VITALS: BP 117/71
[2021-07-27 11:57] LABS: BE 4.2 mmol/L (-2 to +3); PCO2 46.2 mmHg (35.0-45.0); PO2 90.3 mmHg (75.0-100.0)
--- NOTE | 2021-07-27 15:32 | NUR ---
WOUND NURSE: LANDON SEEN TO ADDRESS 3 LESIONS FOLLOWS: SMALL INTACT BLISTER ON SACRUM MEASURING 2.0 X 1.5 X 0.1 CM. PRESENTS WITH SEROUS FLUID. PURPLISH RED, NONBLANCHEABLE TISSUE TO PERIWOUND. ALL WOUNDS CLEANSED WITH SOAP AND WATER, RINSED, THEN PATTED DRY. THIS WOUND TX'D WITH SKIN PREP TO PERIWOUND, AQUACEL AG UNDER EXUDERM (CUT TO FIT), THEN SECURED IN PLACE USING SURESITE TRANSPARENT DRESSING. LEFT POSTERIOR THORACIC BLISTER, IS ERODED AND PINK NONGRANULATING TISSUE IN AN 0.5 X 1.5 X 0.1 CM OPENING. CLEANSED WITH SOAP AND WATER, RINSED, PATTED DRY. APPLIED SKIN PREP AND BORDERED FOAM DRESSING. PATIENT TO RECEIVE THORACENTESIS AND SHE IS NOW BEING PREPPED FOR THIS. PET RESORT CONCIERGE REPORTS SMALL SCRATCH ON LABIA. RECOMMEND USE OF MOISTURE BARRIER PASTE Q SHIFT WITH PERICARE. PATIENT WAS INSTRUCTED ON IMPORTANCE OF OFFLOADING AND STATES SHE UNDERSTANDS.
[2021-07-27 15:55] VITALS: BP 119/71
--- NOTE | 2021-07-27 16:32 | NUR ---
Case Management Followup Pt not medically clear for discharge and currently on 4l of oxygen. No transfer to available for pt. CM to continue to follow pt for discharge needs.
[2021-07-27 16:58] LABS: BF RBC 3244 /mm3; TOTAL CELL COUNT 188 /mm3
--- NOTE | 2021-07-27 17:26 | NUR ---
Assumed care at 0730. Pt was in the dialysis and came back at 1030am. Upon arrival, patient is was assessed. Pt is alert and oriented. Pt sat up and had lunch and dinner. Pt had a bowel movement today. Pt had some procedure today. Will continue care.
[2021-07-27 17:39] LABS: BF LYMPHOCYTES 33 %; BF MONOCYTES 1 %; BF POLYS 66 %; BF TISSUE 7 /100 WBC; CLARITY CLEAR; TOTAL VOLUME 550 ml
[2021-07-27 18:37] LABS: SOURCE THORACENTESIS
[2021-07-27 20:00] VITALS: BP 102/60
[2021-07-28 00:09] VITALS: BP 100/54
[2021-07-28 04:00] VITALS: BP 111/63
[2021-07-28 04:54] LABS: HEMATOCRIT 28.1 % (37.0-47.0); HEMOGLOBIN 9.5 gm/dL (12.0-15.0); MCH 29.3 pg (26.0-34.0); MCHC 33.6 g/dL (28.0-37.0); MCV 87.1 fL (80.0-100.0); MPV 8.5 fl. (7.2-11.1); RBC 3.23 mil/uL (4.20-5.00); WBC 9.2 thou/uL (4.0-11.0)
[2021-07-28 05:19] LABS: ALBUMIN 2.7 g/dL (3.4-5.0); CALCIUM 7.9 mg/dL (8.5-10.1); CREATININE 1.9 mg/dL (0.6-1.3); POTASSIUM 4.3 mmol/L (3.5-5.1); TOTAL BILIRUBIN 0.5 mg/dL (<0.1-1.0); TOTAL PROTEIN 5.5 g/dL (6.4-8.2)
--- NOTE | 2021-07-28 05:39 | NUR ---
PATIENT SLEPT MOST OF THE NIGHT. IV REMAINS SALINE LOCKED. PATIENT HAD NO COMPLAINTS OF PAIN. PATIENT IS ON OXYGEN AT 4L NC WHILE AWAKE AND AND WORE BIPAP OVER NIGHT. HARMON REMAINS TO DEPENDENT DRAIN. WILL CONTINUE TO MONITOR.
[2021-07-28 07:35] VITALS: BP 104/61
[2021-07-28 11:08] LABS: BODY FLUID PROTEIN 1.5 g/dL (())
[2021-07-28 11:51] VITALS: BP 94/57
--- NOTE | 2021-07-28 13:08 | PATH ---
[address] [address] PATHOLOGY RPT PROCEDURE Name: CHAD TIERNEY Room: [address] IN [facility]#: [id number] Admission: 07/16/21 Date of : 43 Discharge: Report #: [id number] Path Case #: [id number] Note [facility] Accession Number: [id number] TESTS RESULT FLAG UNITS REF RANGE LAB Clinician Provided Cytology Information No. of containers..01 Other (Miscellaneous) Source: LEFT PLEURAL FLUID DIAGNOSIS: 02 LEFT PLEURAL FLUID NEGATIVE FOR MALIGNANCY. REACTIVE MESOTHELIAL CELLS AND FEW INFLAMMATORY CELLS AND RBCs. THIS INTERPRETATION INCLUDES EVALUATION OF A CELL BLOCK. Signed out by: 02 Osiel Flores MD, Pathologist NPI- [id number] Performed by: 01 Anh Beasley, Coat Padder ([facility]) Gross description: 01 35ML, ORANGE, CLOUDY /LCS 07/26/2021 1251 Local FLAG LEGEND: L-Low Normal,H-High Normal,LL-Alert Low,HH-Alert High <-Panic Low,>-Panic High,A-Abnormal,AA-Critical Abnormal Performed at: [address] [place] [address] Flip Preciado MD, [address] [place] [address] [address], [place] [address] Osiel Flores MD, Performed at: [address], [place], [place] [id number] MD Flip Preciado MD Phone: [phone]
--- NOTE | 2021-07-28 15:32 | NUR ---
CM Follow-up Providers indicated pt not yet medically clear for discharge. CM to continue to follow pt for discharge planning needs
[2021-07-28 16:00] VITALS: BP 100/63
--- NOTE | 2021-07-28 18:00 | NUR ---
Assumed care at 0730. Pt is alert and oriented. Pt sat up in the chair today. Tolerated 3liters of oxygen. Pt had uneventful day. Will continue care.
[2021-07-28 20:00] VITALS: BP 106/69
[2021-07-29] VITALS: BP 106/65
[2021-07-29 03:41] LABS: ABSOLUTE EOSINOPHILS 0.2 thou/uL (0.0-0.7); ABSOLUTE LYMPHOCYTES 0.6 thou/uL (0.8-5.3); ABSOLUTE MONOCYTES 0.5 thou/uL (0.0-1.2); ABSOLUTE NEUTROPHILS 7.6 thou/uL (1.6-8.1); EOSINOPHILS 2.3 %; HEMATOCRIT 29.1 % (37.0-47.0); HEMOGLOBIN 9.6 gm/dL (12.0-15.0); LYMPHOCYTES 6.8 %; MCH 29.1 pg (26.0-34.0); MCHC 33.2 g/dL (28.0-37.0); MCV 87.6 fL (80.0-100.0); MONOCYTES 5.6 %; MPV 8.3 fl. (7.2-11.1); NUCLEATED RBCS 0 /100WBC; PLATELET COUNT* 144 thou/uL (150-400); POLYS 85.3 %; RBC 3.32 mil/uL (4.20-5.00); RDW-CV 16.7 % (10.5-14.5); WBC 8.9 thou/uL (4.0-11.0)
[2021-07-29 03:56] LABS: ALBUMIN 2.9 g/dL (3.4-5.0); CALCIUM 8.1 mg/dL (8.5-10.1); MAGNESIUM 1.9 mg/dL (1.8-2.4); POTASSIUM 4.6 mmol/L (3.5-5.1); TOTAL BILIRUBIN 0.6 mg/dL (<0.1-1.0); TOTAL PROTEIN 5.9 g/dL (6.4-8.2)
[2021-07-29 04:00] VITALS: BP 99/52
--- NOTE | 2021-07-29 06:39 | NUR ---
PATIENT SLEPT MOST OF THE NIGHT. IV REMAINS SALINE LOCKED. PATIENT REMAINS ON OXYGEN AT 3L PER NC. HARMON REMAINS TO DEPENDENT DRAIN. PATIENT HAD NO COMPLAINTS OF PAIN. WILL CONTINUE TO MONITOR.
[2021-07-29 08:01] VITALS: BP 106/52
[2021-07-29 12:25] VITALS: BP 102/59
[2021-07-29 16:42] VITALS: BP 119/69
--- NOTE | 2021-07-29 17:25 | NUR ---
CM FOLLOWUP PT NOT MEDICALLY CLEAR TO DISCHARGE SHE IS STILL RECEIVING DIALYSIS.CM TO CONTINUE TO FOLLOW PT FOR DISCHARGE PLANNING SERVICES.
[2021-07-29 20:00] VITALS: BP 104/64
[2021-07-30] VITALS (7 sets, daily range): BP systolic 89–123; BP diastolic 52–69
--- NOTE | 2021-07-30 06:46 | NUR ---
Alert and oriented x 4, she may be forgetful at times. 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 O2 sat was 93-98%. She has a merrill to DD, good output. Lungs are diminished. SR to ST on the monitor. BP has been low at times. Temporary dialysis cath to rt chest. She has slept well.
[2021-07-30 11:38] LABS: CALCIUM 8.6 mg/dL (8.5-10.1); CREATININE 1.9 mg/dL (0.6-1.3); POTASSIUM 4.6 mmol/L (3.5-5.1)
--- NOTE | 2021-07-30 11:45 | NUR ---
Dr Nugent paged related to BMP results.
--- NOTE | 2021-07-30 11:56 | NUR ---
WOUND NURSE: NURSING REPORTED 2 WOUNDS ON EACH HEEL. RIGHT HEEL SUSPECTED DEEP TISSUE INJURY MEASURING 6.5 X 6.5 X 0.1 CM. RUPTURED BULLA WITH EXPOSED REDDISH PURPLE NONBLANCHEABLE TISSUE. SEROUS DRAINAG IN MODERATE AMOUNT. CLEANSED WITH WOUND CLEANSER AND GAUZE. APPLIED OPTIFOAM GENTLE AG TO BOTH WOUNDS AND WRAPPED WITH KERLEX AND SECURED WITH TAPE. APPLIED HEELMEDIX BOOTS BILATERALLY. LEFT HEEL MEASURES 3.5 X 2.5 X 0.1 CM. SMALL AMOUNT OF SEROUS DRAINAGE RUPTURED BULLA WITH REDDISH PURPLE NONBLANCHEABLE TISSUE. PATIENT REPORTS HEELS ARE PAINFU.
--- NOTE | 2021-07-30 18:44 | NUR ---
CM FOLLOWUP PT NOT MEDICALLY CLEAR TO DISCHARGE. PT STILL UNDERGOING TEMPORARY DIALYSIS.CM TO CONTINUE TO FOLLOW.
[2021-07-31 04:00] VITALS: BP 89/53
[2021-07-31 04:23] LABS: ABSOLUTE EOSINOPHILS 0.1 thou/uL (0.0-0.7); ABSOLUTE LYMPHOCYTES 0.7 thou/uL (0.8-5.3); ABSOLUTE MONOCYTES 0.5 thou/uL (0.0-1.2); ABSOLUTE NEUTROPHILS 6.9 thou/uL (1.6-8.1); BASOPHILS 0.1 %; EOSINOPHILS 1.4 %; HEMATOCRIT 27.9 % (37.0-47.0); HEMOGLOBIN 9.3 gm/dL (12.0-15.0); MCH 29.3 pg (26.0-34.0); MCHC 33.1 g/dL (28.0-37.0); MCV 88.4 fL (80.0-100.0); MONOCYTES 6.4 %; NUCLEATED RBCS 0 /100WBC; PLATELET COUNT* 178 thou/uL (150-400); POLYS 83.1 %; RBC 3.16 mil/uL (4.20-5.00); RDW-CV 16.7 % (10.5-14.5); WBC 8.3 thou/uL (4.0-11.0)
[2021-07-31 04:41] LABS: CALCIUM 8.1 mg/dL (8.5-10.1); CREATININE 1.7 mg/dL (0.6-1.3); MAGNESIUM 1.9 mg/dL (1.8-2.4); POTASSIUM 4.5 mmol/L (3.5-5.1)
[2021-07-31 08:00] VITALS: BP 90/56
--- NOTE | 2021-07-31 11:00 | NUR ---
INITIATED TRANSFER PER OA SISTER SERGE'S REQUEST. [facility] [place] DECLINED DUE TO BED CAPACITY. [facility] STATED THEY WERE AT CAPACITY. INITIATED TRANSFER WITH [facility]. DR. BOONE AND RN UPDATED. [facility] ACCEPTED PATIENT. I NOTIFIED SISTER AND PROVIDED PATIENT'S NEW ROOM NUMBER.
[2021-07-31 12:30] VITALS: BP 93/55
--- NOTE | 2021-07-31 16:15 | NUR ---
ASSUMED PT CARE AT 0730, PT AOX4 BUT FORGETFUL, GOT UP TO CHAIR TODAY AND DID WELL BUT KEPT SAYING "I CAN'T WALK" WHILE ACTIVELY GETTING UP AND TAKING STEPS TO CHAIR. PT'S SISTER, SERGE, REQUESTED TRANSFER TO ANOTHER HOSPITAL, [facility] ACCEPTED PT AND REPORT CALLED TO [facility] AT APPROX 1600. TRANSPORT BEING SET UP CURRENTLY
--- NOTE | 2021-07-31 17:04 | NUR ---
PT PICKED UP BY [facility] AT APPROX 1655, PT'S SISTER CALLED AND UPDATED ON TRANSFER.
--- NOTE | 2021-08-02 14:07 | PATH ---
[address] [address] PATHOLOGY RPT PROCEDURE Name: CHAD TIERNEY Room: [address]#: [id number] Admission: 07/16/21 Date of : 43 Discharge: 07/31/21 Report #: [id number] Path Case #: [id number] Note [facility] Accession Number: [id number] TESTS RESULT FLAG UNITS REF RANGE LAB Clinician Provided Cytology Information No. of containers..01 Other (Miscellaneous) Source: RIGHT PLEURAL FLUID DIAGNOSIS: 02 RIGHT PLEURAL FLUID NEGATIVE FOR MALIGNANT CELLS. REACTIVE MESOTHELIAL CELLS ARE PRESENT. THIS INTERPRETATION INCLUDES EVALUATION OF A CELL BLOCK. Signed out by: 02 Coleen Nugent MD, Pathologist NPI- [id number] Performed by: 01 Anh Beasley, Global Logistics Analyst ([facility]) Gross description: 01 41ML, ELLIS PORTILLO /FELICIA 07/28/2021 1559 Local FLAG LEGEND: L-Low Normal,H-High Normal,LL-Alert Low,HH-Alert High <-Panic Low,>-Panic High,A-Abnormal,AA-Critical Abnormal Performed at: [address] [place] [address] Flip Preciado MD, [address] [address] Kristi Simmons MD, Specimen Comment: A duplicate report has been generated due to demographic updates. Performed at: [address], [place], [place] [id number] MD Flip Preciado MD Phone: [phone]
== END 2021-07-31 16:55 | disposition short-term general hospital (02) | DRG 177 ==
LOC: M.ERS 10:31 → M.ORTHSURG 11:40 → M.TBA-ER 11:40 → M.ORTHSURG 17:15
PROVIDERS: Emergency Medicine Emergency Medical Services; Internal Medicine; Internal Medicine Cardiovascular Disease; Internal Medicine Critical Care Medicine; Internal Medicine Nephrology; ADMIT Internal Medicine; ATTEND Internal Medicine
PROC: 5A0935A Assistance with Respiratory Ventilation, Less than 24 Consecutive Hours, High Flow/Velocity Cannula (ICD-10-PCS; 2021-07-20)
PROC: 5A09357 Assistance with Respiratory Ventilation, Less than 24 Consecutive Hours, Continuous Positive Airway Pressure (ICD-10-PCS; 2021-07-20)
PROC: 5A09357 Assistance with Respiratory Ventilation, Less than 24 Consecutive Hours, Continuous Positive Airway Pressure (ICD-10-PCS; 2021-07-21)
PROC: 5A09357 Assistance with Respiratory Ventilation, Less than 24 Consecutive Hours, Continuous Positive Airway Pressure (ICD-10-PCS; 2021-07-22)
PROC: 5A09357 Assistance with Respiratory Ventilation, Less than 24 Consecutive Hours, Continuous Positive Airway Pressure (ICD-10-PCS; principal; 2021-07-23)
PROC: 0W993ZZ Drainage of Right Pleural Cavity, Percutaneous Approach (ICD-10-PCS; principal; 2021-07-23)
PROC: 5A09357 Assistance with Respiratory Ventilation, Less than 24 Consecutive Hours, Continuous Positive Airway Pressure (ICD-10-PCS; 2021-07-24)
PROC: B5181ZA Fluoroscopy of Superior Vena Cava using Low Osmolar Contrast, Guidance (ICD-10-PCS; 2021-07-25)
PROC: B548ZZA Ultrasonography of Superior Vena Cava, Guidance (ICD-10-PCS; 2021-07-25)
PROC: 5A09357 Assistance with Respiratory Ventilation, Less than 24 Consecutive Hours, Continuous Positive Airway Pressure (ICD-10-PCS; 2021-07-25)
PROC: 02HV33Z Insertion of Infusion Device into Superior Vena Cava, Percutaneous Approach (ICD-10-PCS; 2021-07-25)
PROC: 5A09357 Assistance with Respiratory Ventilation, Less than 24 Consecutive Hours, Continuous Positive Airway Pressure (ICD-10-PCS; 2021-07-26)
PROC: 0W9B3ZZ Drainage of Left Pleural Cavity, Percutaneous Approach (ICD-10-PCS; 2021-07-27)
PROC: 5A09357 Assistance with Respiratory Ventilation, Less than 24 Consecutive Hours, Continuous Positive Airway Pressure (ICD-10-PCS; 2021-07-28)
PROC: 5A09357 Assistance with Respiratory Ventilation, Less than 24 Consecutive Hours, Continuous Positive Airway Pressure (ICD-10-PCS; 2021-07-29)
PROC: 5A09357 Assistance with Respiratory Ventilation, Less than 24 Consecutive Hours, Continuous Positive Airway Pressure (ICD-10-PCS; 2021-07-30)
PROC: 5A09357 Assistance with Respiratory Ventilation, Less than 24 Consecutive Hours, Continuous Positive Airway Pressure (ICD-10-PCS; 2021-07-31)
DX: J15.6 Pneumonia due to other Gram-negative bacteria (principal); I50.33 Acute on chronic diastolic (congestive) heart failure; J96.21 Acute and chronic respiratory failure with hypoxia; J96.22 Acute and chronic respiratory failure with hypercapnia; N17.0 Acute kidney failure with tubular necrosis; E87.3 Alkalosis; J98.11 Atelectasis; E87.0 Hyperosmolality and hypernatremia; I13.0 Hypertensive heart and chronic kidney disease with heart failure and stage 1 through stage 4 chronic kidney disease, or unspecified chronic kidney disease; J44.0 Chronic obstructive pulmonary disease with (acute) lower respiratory infection; J45.909 Unspecified asthma, uncomplicated; E78.5 Hyperlipidemia, unspecified; E66.9 Obesity, unspecified; F20.9 Schizophrenia, unspecified; I27.20 Pulmonary hypertension, unspecified; D64.9 Anemia, unspecified; I35.2 Nonrheumatic aortic (valve) stenosis with insufficiency; N18.9 Chronic kidney disease, unspecified; R53.81 Other malaise; E87.6 Hypokalemia; S41.012A Laceration without foreign body of left shoulder, initial encounter; S91.302A Unspecified open wound, left foot, initial encounter; S91.301A Unspecified open wound, right foot, initial encounter; X58.XXXA Exposure to other specified factors, initial encounter; Y93.89 Activity, other specified; Y92.89 Other specified places as the place of occurrence of the external cause; Z90.49 Acquired absence of other specified parts of digestive tract; Z98.49 Cataract extraction status, unspecified eye; Z68.29 Body mass index [BMI] 29.0-29.9, adult; Z82.49 Family history of ischemic heart disease and other diseases of the circulatory system; Y99.8 Other external cause status